=== PATIENT | female | born 1965 | race Caucasian/White ===

== ENCOUNTER 2018-03-27 16:24 | Inpatient (IN) | payer OTHER ==
[2018-03-27] MEDS ORDERED: IPRATROPIUM 0.5 MG/2.5 ML NEBU INHALATION STA (16:55)
[2018-03-27] MEDS ORDERED: ALBUTEROL NEBULIZED 2.5 MG/3 ML INHALATION STA (16:55)
[2018-03-27] MEDS ORDERED: SODIUM CHLORIDE 0.9% 1,000 ML IV STA (16:55)
[2018-03-27] MEDS ORDERED: cefTRIAXone IN SWFI 2,000 MG/20 ML SYRINGE IVP STA (16:55)
[2018-03-27] MEDS ORDERED: AZITHROMYCIN 500 MG in SODIUM CHLORIDE 0.9% 250 ML IVPB STA (16:55)
[2018-03-27] MEDS ORDERED: methylPREDNISolone SOD SUCCI 125 MG/2 ML VIAL IV STA (16:55)
[2018-03-27 17:21] LABS: Basophils # (A) 0.1 k/uL (0-0.2); Basophils % (A) 1 %; Eosinophils # (A) 0.1 k/uL (0-0.7); Eosinophils % (A) 1 %; HCT 38.7 % (34.0-46.0); HGB 12.7 gm/dL (11.4-16.0); Hypochromasia Slight; Lymphocytes # (A) 1.3 k/uL (1.0-4.8); Lymphocytes % (A) 17 %; MCH 32.5 pg (25.0-35.0); MCHC 32.9 g/dL (31.0-37.0); MCV 98.8 fL (80.0-100.0); Macrocytosis Slight; Mean Platelet Volume 7.8; Monocytes # (A) 1.1 k/uL (0-1.0); Monocytes % (A) 14 %; Neutrophils # (A) 5.2 k/uL (1.3-7.7); Neutrophils % (A) 66 %; Platelet Count 189 k/uL (150-450); RBC 3.92 m/uL (3.80-5.40); RDW 15.9 % (11.5-15.5); WBC 7.9 k/uL (3.8-10.6)
[2018-03-27 17:35] LABS: ALT 29 U/L (9-52); AST 28 U/L (14-36); Alkaline Phosphatase 58 U/L (38-126); Anion Gap 10 mmol/L; Blood Urea Nitrogen 16 mg/dL (7-17); Calcium 8.9 mg/dL (8.4-10.2); Carbon Dioxide 28 mmol/L (22-30); Chloride 102 mmol/L (98-107); Glucose 266 mg/dL (74-99); Sodium 140 mmol/L (137-145); Total Bilirubin 0.6 mg/dL (0.2-1.3); Total Protein 6.8 g/dL (6.3-8.2)
[2018-03-27 17:39] LABS: Creatine Kinase 82 U/L (30-135)
[2018-03-27 17:41] LABS: Potassium 4.1 mmol/L (3.5-5.1)
[2018-03-27 17:42] LABS: D-Dimer 0.36 mg/L FEU (<0.60); INR 0.9 (<1.2); Partial Thromboplastin Time 24.6 sec (22.0-30.0); Prothrombin Time 9.3 sec (9.0-12.0)
[2018-03-27] MEDS ORDERED: ACETAMINOPHEN TAB 325 MG TAB PO STA (17:48)
[2018-03-27 17:52] LABS: Creatine Kinase MB 1.5 ng/mL (0.0-2.4); Troponin I <0.012 ng/mL (0.000-0.034)
[2018-03-27 18:10] LABS: VBG PH 7.32 (7.31-7.41)
--- NOTE | 2018-03-27 18:42 | ED ---
SOB HPI - General Chief Complaint: Shortness of Breath Stated Complaint: difficulty breathing Time Seen by Provider: 03/27/18 16:48 Source: patient Mode of arrival: EMS Limitations: no limitations - History of Present Illness Initial Comments: 52 years old lady with a history of COPD comes in with a shortness of breath also complaining about the chest pain she said chest pain gets worse with a deep breaths has been coughing also had a fever chills, she said she believes he has a pneumonia she denies any headache no neck stiffness has a chest pain and shortness of breath no abdominal pain no frequency urgency dysuria no symptoms of TIA or CVA - Related Data Allergies Allergy/AdvReac Type Severity Reaction Status Date / Time phenobarbital Allergy Confusion Verified 03/27/18 16:43 Review of Systems ROS Statement: Those systems with pertinent positive or pertinent negative responses have been documented in the HPI. ROS Other: All systems not noted in ROS Statement are negative. Past Medical History Past Medical History: COPD, Diabetes Mellitus, Hyperlipidemia, Hypertension, Pneumonia, Seizure Disorder Additional Past Medical History / Comment(s): hep b and hep C History of Any Multi-Drug Resistant Organisms: None Reported Past Surgical History: Section, Cholecystectomy Past Psychological History: Depression Smoking Status: Current every day smoker Past Alcohol Use History: Abuse Past Drug Use History: Cocaine, Heroin General Exam - General Exam Comments Initial Comments: General: The patient is awake and alert, in mild distress Skin: Skin is warm and dry and no rashes or lesions are noted. Eye: Pupils are equal, round and reactive to light, extra-ocular movements are intact; there is normal conjunctiva bilaterally. Ears, nose, mouth and throat: There are moist mucous membranes and no oral lesions. Neck: The neck is supple, there is no tenderness or JVD. Cardiovascular: There is a regular rate and rhythm. No murmur, rub or gallop is appreciated. Respiratory: To auscultation bilateral, moderate to severe COPD noticed Gastrointestinal: Soft, non-distended, non-tender abdomen without masses or organomegaly noted. There is no rebound or guarding present. Bowel sounds are unremarkable. Back: There is no tenderness to palpation in the midline. There is no obvious deformity. Musculoskeletal: Normal ROM, no tenderness, There is no pedal edema. There is no calf tenderness or swelling. No cords were appreciated. Neurological: CN II-XII intact, Cranial nerves III through XII are intact. There are no obvious motor or sensory deficits. Coordination appears grossly intact. Speech is normal. Psychiatric: Cooperative, appropriate mood & affect, normal judgment. Limitations: no limitations Course Vital Signs 03/27/18 03/27/18 03/27/18 16:37 16:43 16:50 Temperature 100.2 F H Pulse Rate 120 H Respiratory 26 H Rate Blood Pressure 130/63 O2 Sat by Pulse 74 L 99 Oximetry 03/27/18 03/27/18 17:31 17:41 Temperature Pulse Rate 116 H 120 H Respiratory 20 20 Rate Blood Pressure O2 Sat by Pulse Oximetry KG is a sinus tachycardia ventricular rate is 114 DC interval is 178 QRS duration is 76 QT/QTc is 320/441 review of this EKG does not reveal any ST elevation or ST depression - Reevaluation(s) Reevaluation #1: Assessment was done at [address], d-dimer is negative, CBC, INR, troponin, EKG are unremarkable ABGs showed the pCO2 being bit high consistent with the COPD considering a chest pain patient be admitted to Dr. Lopez and cardiology consult 03/27/18 18:44 Medical Decision Making - Lab Data Result diagrams: 03/27/18 16:47 03/27/18 16:47 Lab Results 03/27/18 03/27/18 03/27/18 Range/Units 16:47 16:47 16:47 WBC 7.9 (3.8-10.6) k/uL RBC 3.92 (3.80-5.40) m/uL Hgb 12.7 (11.4-16.0) gm/dL Hct 38.7 (34.0-46.0) % MCV 98.8 (80.0-100.0) fL MCH 32.5 (25.0-35.0) pg MCHC 32.9 (31.0-37.0) g/dL RDW 15.9 H (11.5-15.5) % Plt Count 189 (150-450) k/uL Neutrophils % 66 % Lymphocytes % 17 % Monocytes % 14 % Eosinophils % 1 % Basophils % 1 % Neutrophils # 5.2 (1.3-7.7) k/uL Lymphocytes # 1.3 (1.0-4.8) k/uL Monocytes # 1.1 H (0-1.0) k/uL Eosinophils # 0.1 (0-0.7) k/uL Basophils # 0.1 (0-0.2) k/uL Hypochromasia Slight Macrocytosis Slight PT (9.0-12.0) sec INR (<1.2) APTT (22.0-30.0) sec D-Dimer (<0.60) mg/L FEU VBG pH (7.31-7.41) VBG pCO2 (37-51) mmHg VBG HCO3 (24-28) mmol/L Sodium 140 (137-145) mmol/L Potassium 4.1 (3.5-5.1) mmol/L Chloride 102 (98-107) mmol/L Carbon Dioxide 28 (22-30) mmol/L Anion Gap 10 mmol/L BUN 16 (7-17) mg/dL Creatinine 0.50 L (0.52-1.04) mg/dL Est GFR (CKD-EPI)AfAm >90 (>60 ml/min/1.73 sqM) Est GFR (CKD-EPI)NonAf >90 (>60 ml/min/1.73 sqM) Glucose 266 H (74-99) mg/dL Calcium 8.9 (8.4-10.2) mg/dL Total Bilirubin 0.6 (0.2-1.3) mg/dL AST 28 (14-36) U/L ALT 29 (9-52) U/L Alkaline Phosphatase 58 (38-126) U/L Total Creatine Kinase 82 (30-135) U/L CK-MB (CK-2) 1.5 (0.0-2.4) ng/mL CK-MB (CK-2) Rel Index 1.8 Troponin I <0.012 (0.000-0.034) ng/mL NT-Pro-B Natriuret Pep pg/mL Total Protein 6.8 (6.3-8.2) g/dL Albumin 4.0 (3.5-5.0) g/dL 03/27/18 03/27/18 03/27/18 Range/Units 16:47 16:47 18:00 WBC (3.8-10.6) k/uL RBC (3.80-5.40) m/uL Hgb (11.4-16.0) gm/dL Hct (34.0-46.0) % MCV (80.0-100.0) fL MCH (25.0-35.0) pg MCHC (31.0-37.0) g/dL RDW (11.5-15.5) % Plt Count (150-450) k/uL Neutrophils % % Lymphocytes % % Monocytes % % Eosinophils % % Basophils % % Neutrophils # (1.3-7.7) k/uL Lymphocytes # (1.0-4.8) k/uL Monocytes # (0-1.0) k/uL Eosinophils # (0-0.7) k/uL Basophils # (0-0.2) k/uL Hypochromasia Macrocytosis PT 9.3 (9.0-12.0) sec INR 0.9 (<1.2) APTT 24.6 (22.0-30.0) sec D-Dimer 0.36 (<0.60) mg/L FEU VBG pH 7.32 (7.31-7.41) VBG pCO2 63 H (37-51) mmHg VBG HCO3 32 H (24-28) mmol/L Sodium (137-145) mmol/L Potassium (3.5-5.1) mmol/L Chloride (98-107) mmol/L Carbon Dioxide (22-30) mmol/L Anion Gap mmol/L BUN (7-17) mg/dL Creatinine (0.52-1.04) mg/dL Est GFR (CKD-EPI)AfAm (>60 ml/min/1.73 sqM) Est GFR (CKD-EPI)NonAf (>60 ml/min/1.73 sqM) Glucose (74-99) mg/dL Calcium (8.4-10.2) mg/dL Total Bilirubin (0.2-1.3) mg/dL AST (14-36) U/L ALT (9-52) U/L Alkaline Phosphatase (38-126) U/L Total Creatine Kinase (30-135) U/L CK-MB (CK-2) (0.0-2.4) ng/mL CK-MB (CK-2) Rel Index Troponin I (0.000-0.034) ng/mL NT-Pro-B Natriuret Pep 316 pg/mL Total Protein (6.3-8.2) g/dL Albumin (3.5-5.0) g/dL Disposition Clinical Impression: Pneumonia, COPD with acute exacerbation, Chest pain Disposition: ADMITTED IP TO THIS HOSP Condition: Good Referrals: Nonstaff,Physician [Primary Care Provider] - 1-2 days
[2018-03-27] MEDS ORDERED: NITROGLYCERIN SL TABS 0.4 MG TAB SUBLINGUAL PRN (18:47)
--- NOTE | 2018-03-27 19:08 | XR ---
EXAMINATION TYPE: XR chest 2V DATE OF EXAM: 03/27/2018 COMPARISON: NONE HISTORY: Syncope, fever TECHNIQUE: Frontal and lateral views of the chest are obtained. FINDINGS: There is no focal air space opacity, pleural effusion, or pneumothorax seen. The cardiac silhouette size is within normal limits. The osseous structures are intact. IMPRESSION: No acute cardiopulmonary process.
[2018-03-27 20:43] LABS: Glucose,Whole Blood 275 mg/dL (75-99)
[2018-03-27] MEDS: BUDESONIDE 0.5 MG/2 ML NEBU INHALATION SCH (21:13)
[2018-03-27] MEDS ORDERED: ONDANSETRON ODT 8 MG TAB.RAPDIS PO PRN (21:37)
[2018-03-27] MEDS ORDERED: IBUPROFEN 600 MG TAB PO PRN (21:37)
[2018-03-27] MEDS ORDERED: TRIMETHOBENZAMIDE 300 MG CAP PO PRN (21:37)
[2018-03-27] MEDS ORDERED: SYMBICORT 80-4.5 MCG INHALER INHALATION SCH (22:00)
[2018-03-27] MEDS: NICOTINE 21MG/24HR PATCH TRANSDERM SCH (22:34)
[2018-03-27] MEDS: ACETAMINOPHEN TAB 325 MG TAB PO SCH (22:35)
[2018-03-27] MEDS: traZODone HCL 50 MG TAB PO SCH (22:37)
[2018-03-27] MEDS: INSULIN ASPART 100 UNIT/ML 1 ML 10 ML VIAL SQ SCH (22:37)
[2018-03-27] MEDS: methylPREDNISolone SOD SUCCI 125 MG/2 ML VIAL IV SCH (22:37)
[2018-03-27] MEDS: GABAPENTIN 300 MG CAP PO SCH (22:37)
[2018-03-28 00:07] LABS: Creatine Kinase 83 U/L (30-135)
[2018-03-28 00:20] LABS: Troponin I <0.012 ng/mL (0.000-0.034)
[2018-03-28] MEDS: ACETAMINOPHEN TAB 325 MG TAB PO SCH ×6 (01:13→21:23)
[2018-03-28] MEDS: IPRATROPIUM-ALBUTEROL 3 ML NEB INHALATION PRN ×2 (01:19→07:40)
[2018-03-28 01:33] LABS: Cholesterol 133 mg/dL (<200); HDL Cholesterol 41 mg/dL (40-60); LDL Cholesterol,Calculated 67 mg/dL (0-99); Triglycerides 125 mg/dL (<150)
[2018-03-28 05:53] LABS: Glucose,Whole Blood 485 mg/dL (75-99)
[2018-03-28] MEDS ORDERED: INSULIN ASPART 100 UNIT/ML 1 ML 10 ML VIAL SQ ONE (05:57)
[2018-03-28] MEDS: INSULIN ASPART 100 UNIT/ML 1 ML 10 ML VIAL SQ SCH ×7 (06:13→21:26)
[2018-03-28] MEDS: methylPREDNISolone SOD SUCCI 125 MG/2 ML VIAL IV SCH ×3 (06:13→17:39)
[2018-03-28 06:42] LABS: Creatine Kinase 68 U/L (30-135)
[2018-03-28 06:53] LABS: Creatine Kinase MB 2.3 ng/mL (0.0-2.4); Troponin I <0.012 ng/mL (0.000-0.034)
[2018-03-28] MEDS: PIOGLITAZONE 30 MG TAB PO SCH (07:05)
[2018-03-28] MEDS: glipiZIDE 5 MG TAB PO SCH ×2 (07:05→17:39)
[2018-03-28] MEDS ORDERED: INSULIN ASPART 100 UNIT/ML 1 ML 10 ML VIAL SQ SCH (07:30)
[2018-03-28] MEDS: BUDESONIDE 0.5 MG/2 ML NEBU INHALATION SCH ×2 (07:40→19:49)
[2018-03-28] MEDS: NICOTINE 21MG/24HR PATCH TRANSDERM SCH (08:23)
[2018-03-28] MEDS: ASPIRIN 325 MG TAB PO SCH (08:23)
[2018-03-28] MEDS ORDERED: INSULIN DETEMIR 100 UNIT/ML 10 ML VIAL SQ SCH (09:00)
[2018-03-28] MEDS ORDERED: IPRATROPIUM-ALBUTEROL 3 ML NEB INHALATION PRN (10:48)
--- NOTE | 2018-03-28 10:48 | P.CNPUL ---
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 She has a history of hypertension, hyperlipidemia, seizures, diabetes mellitus, chronic obstructive pulmonary disease with chronic and ongoing tobacco dependence. She states she does have inhalers, nebulized treatment and oxygen at home. She also has a history of hepatitis B and C. She recently admitted herself to [facility] stating she drinks a gallon and a half of vodka a day and uses crack cocaine. While there she developed increasing chest pain, shortness of breath, cough and congestion and was transferred here to the emergency room yesterday. Troponins negative 2. EKG revealed no acute ST or T wave abnormalities. Chest x-ray reveals no acute cardiopulmonary process. She was admitted for a COPD exacerbation. She is seen today in consultation on the selective care unit. She is currently awake and alert. She is quite dyspneic on minimal conversation on minimal activity. Bronchospastic and wheezy. Maintaining O2 saturations in the 90s on 4 L/m per nasal cannula. She's afebrile. Slightly tachycardic. White count 7.9. Hemoglobin 12.7. Creatinine 0.50. She has been initiated on bronchodilators and IV Solu-Medrol. Review of Systems 14 point review of system was conducted. All negative other than as mentioned in HPI. Past Medical History Past Medical History: COPD, Diabetes Mellitus, Hyperlipidemia, Hypertension, Pneumonia, Seizure Disorder Additional Past Medical History / Comment(s): hep b and hep C History of Any Multi-Drug Resistant Organisms: None Reported Past Surgical History: Section, Cholecystectomy Past Anesthesia/Blood Transfusion Reactions: No Reported Reaction Past Psychological History: Depression Smoking Status: Current every day smoker Past Alcohol Use History: Abuse, Daily, Heavy Past Drug Use History: Cocaine - Past Family History Mother History Unknown: Yes Additional Family Medical History / Comment(s): Alcoholic. Patient does not know family history Medications and Allergies Home Medications Medication Instructions Recorded Confirmed Type Acetaminophen Tab [Tylenol Tab] 650 mg PO Q4H PRN 03/27/18 03/28/18 History Albuterol Inhaler [Ventolin Hfa 1 - 2 puff INHALATION RT-Q4H PRN 03/27/18 History Inhaler] Ibuprofen [Motrin] 600 mg PO Q6HR PRN 03/27/18 03/28/18 History Insulin Aspart [NovoLOG] See Protocol SQ AC-BID@,03/27/18 03/28/18 History Insulin Glargine,Hum.rec.anlog 25 unit SQ DAILY@0600 03/27/18 03/28/18 History [Basaglar Kwikpen U-100] Mometasone/Formoterol [Dulera 100 2 puff INHALATION RT-BID@06,1730 03/27/18 History Mcg/5 Mcg Inhaler] Ondansetron HCl [Zofran] 8 mg PO Q6HR PRN 03/27/18 03/28/18 History Pioglitazone [Actos] 30 mg PO DAILY@03/27/18 03/28/18 History Trimethobenzamide [Tigan] 300 mg PO Q6HR PRN 03/27/18 03/28/18 History glipiZIDE [Glucotrol XL] 10 mg PO DAILY@03/27/18 03/28/18 History traZODone HCL 150 mg PO HS 03/27/18 03/28/18 History Chlorpheniramine Maleate 4 mg PO Q4H PRN 03/28/18 03/28/18 History [Chlor-Trimeton] Gabapentin [Neurontin] 300 mg PO HS 03/28/18 03/28/18 History Multivitamins, Thera [Multivitamin 1 tab PO DAILY 03/28/18 03/28/18 History (formulary)] Mylanta 30 ml PO Q4H PRN 03/28/18 03/28/18 History Ondansetron [Zofran] 4 mg IM Q6H PRN 03/28/18 03/28/18 History Thiamine [Vitamin B-1] 100 mg PO DAILY 03/28/18 03/28/18 History Tigan 200mg Im 200 mg IM Q6H PRN 03/28/18 03/28/18 History Tigan 300mg Suppository 300 mg RECTAL Q6H PRN 03/28/18 03/28/18 History Allergies Allergy/AdvReac Type Severity Reaction Status Date / Time phenobarbital AdvReac Confusion Verified 03/28/18 09:27 Physical Exam Vitals: Vital Signs Temp Pulse Pulse Resp BP BP Pulse Ox 03/28/18 08:10 98.3 F 108 H 16 131/89 99 03/28/18 07:43 92 03/28/18 04:00 97.5 F L 112 H 18 120/74 97 03/28/18 01:29 88 03/28/18 01:22 78 03/27/18 23:00 98.3 F 107 H 20 133/76 97 03/27/18 22:00 98.8 F 109 H 20 135/72 97 03/27/18 20:17 100.0 F H 109 H 22 132/71 97 03/27/18 18:50 114 H 22 126/65 98 03/27/18 17:41 120 H 20 03/27/18 17:31 116 H 20 03/27/18 16:50 99 03/27/18 16:43 130/63 03/27/18 16:37 100.2 F H 120 H 26 H 74 L Intake and Output 03/27/18 03/28/18 03/28/18 22:59 06:59 14:59 Intake Total 990 620 236 Balance 990 620 236 Intake: IV 10 Invasive Line 1 10 Amount of Fluid Infused ( 500 ml) Intake, IV Titration 140 Amount Sodium Chloride 0.9% 1, 140 000 ml @ 20 mls/hr IV . Q24H STA Rx#:[id number] Oral 480 480 236 Other: Voiding Method Toilet Toilet Diaper Diaper # Voids 1 2 Weight 54.43 kg 60.1 kg - Constitutional General appearance: disheveled, obese - EENT Eyes: EOMI, PERRLA ENT: hearing grossly normal Ears: bilateral: normal - Neck Neck: normal ROM Carotids: bilateral: upstroke normal Thyroid: bilateral: normal size - Respiratory Respiratory: bilateral: diminished, wheezing, prolonged expiration - Cardiovascular Rhythm: regular Heart sounds: normal: S1, S2 - Gastrointestinal General gastrointestinal: normal bowel sounds - Integumentary Integumentary: normal turgor - Neurologic Neurologic: CNII-XII intact - Musculoskeletal Musculoskeletal: gait normal - Psychiatric Psychiatric: A&O x's 3, appropriate affect, intact judgment & insight Results - Laboratory Findings CBC and BMP: 03/27/18 16:47 03/27/18 16:47 PT/INR, D-dimer PT 9.3 sec (9.0-12.0) 03/27/18 16:47 INR 0.9 (<1.2) 03/27/18 16:47 D-Dimer 0.36 mg/L FEU (<0.60) 03/27/18 16:47 Abnormal lab findings: Abnormal Labs 03/27/18 03/27/18 03/27/18 16:47 16:47 18:00 RDW 15.9 H Monocytes # 1.1 H VBG pCO2 63 H VBG HCO3 32 H Creatinine 0.50 L Glucose 266 H POC Glucose (mg/dL) 03/27/18 03/28/18 20:42 05:52 RDW Monocytes # VBG pCO2 VBG HCO3 Creatinine Glucose POC Glucose (mg/dL) 275 H 485 H - Diagnostic Findings Chest x-ray: image reviewed Assessment and Plan Assessment: Impression: #1 Acute on chronic hypoxic respiratory failure secondary to an acute exacerbation of chronic obstructive pulmonary disease. #2 Chronic and ongoing tobacco dependence. #3 Heavy alcohol abuse, currently seeking treatment in [place] inpatient rehabilitation. #4 Chronic cocaine abuse. #5 Diabetes mellitus. #6 Hypertension. #7 Hyperlipidemia. #8 History of hepatitis B and C. #9 History of seizure disorder. Plan: The patient was seen and evaluated by Dr. Golden. We will continue bronchodilators. We will add DuoNeb inhalations 4 times a day and when necessary, Pulmicort and Perforomist inhalations twice a day, continue IV Solu- Medrol. No clear indication for antibiotics at this point. We will increase her activity as tolerated. She is educated regarding the importance of complete smoking cessation. NicoDerm patch has been applied. Educated regarding the importance of alcohol cessation. She is hoping to return to [place] rehabilitation upon discharge. She does live in the [place] area and plans to follow up with her automation and control engineer there. In the interim, we' ll Continue to follow make further recommendations based on her clinical status. I, the cosigning physician, performed a history & physical examination of the patient. Lungs sounds with bilateral end expiratory wheeze, diminished. Maintaining good O2 saturations in the 90s on 4 L/m per nasal cannula. I discussed the assessment and plan of care with my nurse practitioner, Agnieszka Santiago. I attest to the above note as dictated by her. Time with Patient: Greater than 30
[2018-03-28] MEDS: IPRATROPIUM-ALBUTEROL 3 ML NEB INHALATION SCH ×3 (11:19→19:49)
[2018-03-28 11:40] LABS: Glucose,Whole Blood 492 mg/dL (75-99)
--- NOTE | 2018-03-28 12:51 | P.CRDCN ---
History of Present Illness Consult date: 03/21/18 Requesting physician: Jhonny Lopez Consult reason: chest pain Chief complaint: Shortness of breath, cough, chest pain History of present illness: This is a 52-year-old female with history of hypertension, hyperlipidemia, diabetes, COPD, nicotine dependence, EtOH abuse, cocaine use, hepatitis B and C. Who is currently at [facility] because she states she was drinking a gallon of vodka every other day and using crack cocaine. According to the patient, she developed significant shortness of breath, states that she's been coughing up a lot of sputum and having significant time breathing. When she tries to take a deep breath she experiences sharp chest pains in her chest. For this reason she came to the emergency room for further evaluation. Chest x-ray does not reveal any acute cardiopulmonary process. EKG showed a sinus tachycardia with no acute changes. Temperature on arrival 100.2, heart rate 120, 74% on room air, blood pressure 130/60. White blood cell count 7.9, hemoglobin 12.7, platelet count 189. D- dimer 0.36. Sodium 140, potassium 4.1, BUN 16, creatinine 0.5. Troponins are negative 3, BNP level 316. At the time of my examination this morning, patient denies any chest discomfort, she states she still feels wheezy and short of breath, cough, however she does state that it significantly improved from her admission here. Past Medical History Past Medical History: COPD, Diabetes Mellitus, Hyperlipidemia, Hypertension, Pneumonia, Seizure Disorder Additional Past Medical History / Comment(s): hep b and hep C History of Any Multi-Drug Resistant Organisms: None Reported Past Surgical History: Section, Cholecystectomy Past Anesthesia/Blood Transfusion Reactions: No Reported Reaction Past Psychological History: Depression Smoking Status: Current every day smoker Past Alcohol Use History: Abuse, Daily, Heavy Past Drug Use History: Cocaine - Past Family History Mother History Unknown: Yes Additional Family Medical History / Comment(s): Alcoholic. Patient does not know family history Medications and Allergies Home Medications Medication Instructions Recorded Confirmed Type Acetaminophen Tab [Tylenol Tab] 650 mg PO Q4H PRN 03/27/18 03/28/18 History Albuterol Inhaler [Ventolin Hfa 1 - 2 puff INHALATION RT-Q4H PRN 03/27/18 History Inhaler] Ibuprofen [Motrin] 600 mg PO Q6HR PRN 03/27/18 03/28/18 History Insulin Aspart [NovoLOG] See Protocol SQ AC-BID@03/27/18 03/28/18 History Insulin Glargine,Hum.rec.anlog 25 unit SQ DAILY@0600 03/27/18 03/28/18 History [Basaglar Kwikpen U-100] Mometasone/Formoterol [Dulera 100 2 puff INHALATION RT-BID@0 03/27/18 History Mcg/5 Mcg Inhaler] Ondansetron HCl [Zofran] 8 mg PO Q6HR PRN 03/27/18 03/28/18 History Pioglitazone [Actos] 30 mg PO DAILY@03/27/18 03/28/18 History Trimethobenzamide [Tigan] 300 mg PO Q6HR PRN 03/27/18 03/28/18 History glipiZIDE [Glucotrol XL] 10 mg PO DAILY@03/27/18 03/28/18 History traZODone HCL 150 mg PO HS 03/27/18 03/28/18 History Chlorpheniramine Maleate 4 mg PO Q4H PRN 03/28/18 03/28/18 History [Chlor-Trimeton] Gabapentin [Neurontin] 300 mg PO HS 03/28/18 03/28/18 History Multivitamins, Thera [Multivitamin 1 tab PO DAILY 03/28/18 03/28/18 History (formulary)] Mylanta 30 ml PO Q4H PRN 03/28/18 03/28/18 History Ondansetron [Zofran] 4 mg IM Q6H PRN 03/28/18 03/28/18 History Thiamine [Vitamin B-1] 100 mg PO DAILY 03/28/18 03/28/18 History Tigan 200mg Im 200 mg IM Q6H PRN 03/28/18 03/28/18 History Tigan 300mg Suppository 300 mg RECTAL Q6H PRN 03/28/18 03/28/18 History Allergies Allergy/AdvReac Type Severity Reaction Status Date / Time phenobarbital AdvReac Confusion Verified 03/28/18 09:27 Physical Exam Vitals: Vital Signs Temp Pulse Pulse Resp BP BP Pulse Ox 03/28/18 11:45 110 H 16 132/72 95 03/28/18 11:30 88 03/28/18 11:15 88 03/28/18 08:10 98.3 F 108 H 16 131/89 99 03/28/18 07:55 92 03/28/18 07:43 92 03/28/18 04:00 97.5 F L 112 H 18 120/74 97 03/28/18 01:29 88 03/28/18 01:22 78 03/27/18 23:00 98.3 F 107 H 20 133/76 97 03/27/18 22:00 98.8 F 109 H 20 135/72 97 03/27/18 20:17 100.0 F H 109 H 22 132/71 97 03/27/18 18:50 114 H 22 126/65 98 03/27/18 17:41 120 H 20 03/27/18 17:31 116 H 20 03/27/18 16:50 99 03/27/18 16:43 130/63 03/27/18 16:37 100.2 F H 120 H 26 H 74 L Intake and Output 03/27/18 03/28/18 03/28/18 22:59 06:59 14:59 Intake Total 990 620 236 Balance 990 620 236 Intake: IV 10 Invasive Line 1 10 Amount of Fluid Infused ( 500 ml) Intake, IV Titration 140 Amount Sodium Chloride 0.9% 1, 140 000 ml @ 20 mls/hr IV . Q24H STA Rx#:[id number] Oral 480 480 236 Other: Voiding Method Toilet Toilet Toilet Diaper Diaper Diaper # Voids 1 2 Weight 54.43 kg 60.1 kg PHYSICAL EXAMINATION: GENERAL: 52-year-old female in no acute distress at the time of my examination HEENT: Head is atraumatic, normocephalic. Pupils equal, round. Sclera anicteric. Conjunctiva are clear. Mucous membranes of the mouth are moist. Neck is supple. There is no elevated jugular venous pressure.] bruit is heard. HEART EXAMINATION: Heart S1, S2 normal. No murmur or gallop heard. CHEST EXAMINATION: On's reveal decreased air exchange throughout with scattered wheezing throughout. ABDOMEN: Soft, nontender. Bowel sounds are heard. No organomegaly noted. EXTREMITIES: 2+ peripheral pulses with no evidence of peripheral edema and no calf tenderness noted. NEUROLOGIC patient is awake, alert and oriented ?-3. . Results 03/27/18 16:47 03/27/18 16:47 Cardiac Enzymes 03/27/18 03/27/18 03/27/18 Range/Units 16:47 16:47 23:02 AST 28 (14-36) U/L CK-MB (CK-2) 1.5 2.0 (0.0-2.4) ng/mL Troponin I <0.012 <0.012 (0.000-0.034) ng/mL 03/28/18 Range/Units 05:14 AST (14-36) U/L CK-MB (CK-2) 2.3 (0.0-2.4) ng/mL Troponin I <0.012 (0.000-0.034) ng/mL Coagulation 03/27/18 Range/Units 16:47 PT 9.3 (9.0-12.0) sec APTT 24.6 (22.0-30.0) sec Lipids 03/27/18 Range/Units 16:47 Triglycerides 125 (<150) mg/dL Cholesterol 133 (<200) mg/dL HDL Cholesterol 41 (40-60) mg/dL CBC 03/27/18 Range/Units 16:47 WBC 7.9 (3.8-10.6) k/uL RBC 3.92 (3.80-5.40) m/uL Hgb 12.7 (11.4-16.0) gm/dL Hct 38.7 (34.0-46.0) % Plt Count 189 (150-450) k/uL Comprehensive Metabolic Panel 03/27/18 Range/Units 16:47 Sodium 140 (137-145) mmol/L Potassium 4.1 (3.5-5.1) mmol/L Chloride 102 (98-107) mmol/L Carbon Dioxide 28 (22-30) mmol/L BUN 16 (7-17) mg/dL Creatinine 0.50 L (0.52-1.04) mg/dL Glucose 266 H (74-99) mg/dL Calcium 8.9 (8.4-10.2) mg/dL AST 28 (14-36) U/L ALT 29 (9-52) U/L Alkaline Phosphatase 58 (38-126) U/L Total Protein 6.8 (6.3-8.2) g/dL Albumin 4.0 (3.5-5.0) g/dL Current Medications Generic Name Dose Route Start Last Admin Trade Name Freq PRN Reason Stop Dose Admin Acetaminophen 650 mg 03/27/18 21:45 03/28/18 12:19 Tylenol Tab PO Not Given Q4H EARLE Albuterol/Ipratropium 3 ml 03/28/18 10:48 Duoneb 0.5 Mg-3 Mg/3 Ml Soln INHALATION RT-Q2H PRN Shortness Of Breath Or Wheezing Albuterol/Ipratropium 3 ml 03/28/18 12:00 03/28/18 11:19 Duoneb 0.5 Mg-3 Mg/3 Ml Soln INHALATION 3 ml RT-Q4H EARLE Administration Aspirin 325 mg 03/28/18 09:00 03/28/18 08:23 Aspirin PO 325 mg DAILY EARLE Administration Budesonide 1 mg 03/28/18 20:00 Pulmicort INHALATION RT-BID EARLE Formoterol Fumarate 20 mcg 03/28/18 20:00 Perforomist INHALATION RT-BID EARLE Gabapentin 300 mg 03/27/18 22:00 03/27/18 22:37 Neurontin PO 300 mg HS EARLE Administration Glipizide 5 mg 03/28/18 07:30 03/28/18 07:05 Glucotrol PO 5 mg AC-BID EARLE Administration Sodium Chloride 1,000 mls @ 20 mls/hr 03/27/18 16:55 03/27/18 17:22 Saline 0.9% IV 03/28/18 16:54 20 mls/hr .Q24H STA Administration Ibuprofen 600 mg 03/27/18 21:37 Motrin PO Q6HR PRN Pain Insulin Aspart 0 unit 03/27/18 22:06 03/28/18 06:13 Novolog SQ 10 unit ACHS EARLE Administration Insulin Aspart 10 unit 03/28/18 12:30 Novolog SQ ACHS EARLE Insulin Detemir 25 unit 03/28/18 09:00 03/28/18 08:23 Levemir SQ 25 unit DAILY EARLE Administration Methylprednisolone Sodium Succinate 60 mg 03/28/18 00:00 03/28/18 06:13 Solu-Medrol IV 60 mg Q6HR EARLE Administration Nicotine 1 patch 03/27/18 20:00 03/28/18 08:23 Habitrol 21mg/24hr Patch TRANSDERM Not Given DAILY [facility] Nitroglycerin 0.4 mg 03/27/18 18:47 Nitrostat SUBLINGUAL Q5M PRN Chest Pain Ondansetron HCl 8 mg 03/27/18 21:37 Zofran Odt PO Q6HR PRN Nausea Pioglitazone HCl 30 mg 03/28/18 07:30 03/28/18 07:05 Actos PO 30 mg AC-BRKFST EARLE Administration Trazodone HCl 150 mg 03/27/18 22:00 03/27/18 22:37 Desyrel PO 150 mg HS EARLE Administration Trimethobenzamide HCl 300 mg 03/27/18 21:37 Tigan PO Q6HR PRN Nausea Intake and Output 03/27/18 03/28/18 03/28/18 22:59 06:59 14:59 Intake Total 990 620 236 Balance 990 620 236 Intake: IV 10 Invasive Line 1 10 Amount of Fluid Infused ( 500 ml) Intake, IV Titration 140 Amount Sodium Chloride 0.9% 1, 140 000 ml @ 20 mls/hr IV . Q24H STA Rx#:[id number] Oral 480 480 236 Other: Voiding Method Toilet Toilet Toilet Diaper Diaper Diaper # Voids 1 2 Weight 54.43 kg 60.1 kg 03/27/18 16:47 03/27/18 16:47 EKG Interpretations (text) EKG on admission shows a sinus tachycardia. Assessment and Plan Plan: Assessment and plan #1 symptoms of progressively worsening shortness of breath with associated productive cough, likely secondary to COPD exacerbation, possible pneumonia. #2 chronic nicotine dependence #3 heavy alcohol abuse and cocaine use, currently at [facility] #4 diabetes #5 chest pain, atypical for acute coronary syndrome, pleuritic in nature. Troponins negative 3. EKG shows sinus tachycardia with no acute changes. #6 hypertension #7 hyperlipidemia #8 history of hepatitis B and C #9 history of seizure disorder Plan Obtain an echocardiogram with Doppler study. Once patient's lung status has improved we may consider performing a stress echocardiographic study. Patient was quite hypoxic on admission with an O2 sat of 74% on room air, tachycardic, we will obtain a d-dimer. Rule out the possibility of pulmonary embolism on top of COPD exacerbation. DNP note has been reviewed, I agree with a documented findings and plan of care. Patient was seen and examined.
[2018-03-28 16:54] LABS: Glucose,Whole Blood 435 mg/dL (75-99)
[2018-03-28] MEDS: NICOTINE POLACRILEX 2 MG GUM BUCCAL PRN (18:30)
[2018-03-28] MEDS: FORMOTEROL FUMARATE 20 MCG/2 ML NEBU INHALATION SCH (19:48)
[2018-03-28 20:36] LABS: Glucose,Whole Blood 480 mg/dL (75-99)
--- NOTE | 2018-03-28 21:12 | HP ---
HISTORY AND PHYSICAL DATE OF SERVICE: March 28, 2018. PRESENTING COMPLAINT: Short of breath, chest tightness. HISTORY OF PRESENTING COMPLAINT: This is a 52-year-old patient with a family doctor out of the area. Patient is currently at [facility] and is there for alcohol disorder. The patient's chronic stable medical conditions include depression, hyperlipidemia, hepatitis B, hepatitis C. The patient has been smoking cigarettes for over 35 years, was drinking a gallon of vodka every other day for which she is admitted to [facility]. Last drink was on March 14. Has been at [facility] since then. Patient lives with a fiancee. The patient presented with a few days of worsening short of breath, wheezing, slight cough. No sputum. Chest tightness. Had a low-grade fever, tired and run down. No fever, chills. No dizziness, lightheadedness. The patient did get bronchodilators. Still feeling rather tight in the chest. The patient is put on bronchodilators, IV steroids. Sugars were running high. Patient refused insulin drip even though sugars running 400s. The patient does feel weak, tired, run down. REVIEW OF SYSTEMS: CONSTITUTIONAL: Weak and tired. HEENT none. RESPIRATORY: As above. Nasal stuffiness. CARDIOVASCULAR as above. GASTROINTESTINAL none. GENITOURINARY none. MUSCULOSKELETAL: None. DERMATOLOGICAL, HEMATOLOGIC, LYMPHATIC: None. PSYCHIATRY: Anxious. NEUROLOGICAL: None. PAST HEALTH: COPD, diabetes type 2, hyperlipidemia, hypertension, seizure alcohol-related, hepatitis B and hepatitis C from sexual partners. PAST SURGICAL HISTORY: , cholecystectomy. PSYCH HISTORY: Depression. SOCIAL HISTORY: The patient was doing occasional cocaine till about 3 weeks ago. Smoking for close to 35 years, averaging about 2 packs a day, now down to 5 cigarettes in the last few days. Was drinking alcoholic vodka, a gallon of vodka every other day. Lives with a fiancee. Currently at [facility]. FAMILY HISTORY: Of alcoholism. HOME MEDICATIONS: 1. Neurontin 300 mg q.h.s. 2. Trazodone 150 mg q.h.s. 3. Glucotrol XL 10 mg p.o. daily. 4. Tigan 300 mg q.6h p.r.n. 5. Tigan suppository p.r.n. 6. Thiamine 100 mg a day. 7. Actos 30 mg a day. 8. Zofran 4 mg IM q.6h p.r.n. and 8 mg p.o. q.6 p.r.n. 9. Mylanta 30 mL p.o. q.4 p.r.n. 10.Multivitamin 1 tablet p.o. daily. 11.Dulera 100/5 2 puffs b.i.d. 12.Insulin aspart per protocol. 13.Insulin Lantus 25 units subcutaneously daily. 14.Motrin 600 mg p.o. q.h.s. 15.Chlor-Trimeton 4 mg q.6h p.r.n. 16.Ventolin HFA 1-2 puffs q.4 p.r.n. 17.Tylenol 650 mg q.4 p.r.n. ALLERGY: PHENOBARBITAL. PHYSICAL EXAMINATION: VITAL SIGNS: Vital signs on presentation, temperature 100.2, pulse 120, respiration 26, blood pressure 130/63, pulse ox 97% on room air. GENERAL APPEARANCE: Well built, BMI 31. Sitting up, short of breath. EYES: Pupils are equal. Conjunctivae normal. HEENT: External appearance of nose and ears normal. Oral cavity normal. NECK: JVD unable to assess. Mass not palpable. RESPIRATORY: Effort increased. LUNGS: Poor air entry, prolonged expiration, wheezing, accessory muscles working. CARDIOVASCULAR: 1st and 2nd sounds normal. Mild edema. ABDOMEN: Distended, soft. Liver and spleen not palpable. LYMPHATICS: No lymph nodes palpable in the neck and axillae. PSYCHIATRY: Alert and oriented x3. Mood and affect anxious-appearing. NEUROLOGICAL: Pupils are equal. Cranial nerves grossly intact. Power and sensation grossly intact. INVESTIGATIONS: White count 7.9, hemoglobin 12.7, potassium 4.1, BUN 16, creatinine 0.5. Troponin x3 negative. ALT 67. EKG shows sinus tachycardia. Chest x-ray film interpreted by me, no acute process. ASSESSMENT: 1. Acute severe chronic obstructive pulmonary disease exacerbation in a current smoker causing acute hypoxic respiratory failure. 2. Obesity; BMI 30.8. 3. Chronic alcohol dependence for which patient is at [facility]. Last drink was on March 14. 4. Chronic nicotine dependence, patient is a cigarette smoker. 5. Recreational cocaine use. 6. Hepatitis B and hepatitis C from sexual partner sexually transmitted. 7. Depression not otherwise specified. 8. Essential hypertension. 9. Diabetes mellitus type 2, chronically on insulin. Uncontrolled over 400 secondary to steroids secondary to hyperglycemia. The patient refusing an insulin drip. PLAN: Patient is put on nebulized bronchodilators, steroids. Cardiology was consulted. We will also add some Claritin-D. Given sugars running over 400 and patient refusing insulin drip, increase the dose of Levemir to 30 units subcu q.12h. Consultation to both Cardiology and Pulmonary was done. Smoking cessation counseling was done with the patient telling her including the fact that smoking makes her breathing worse. The patient is given a nicotine patch. More than 3 minutes was spent on this aspect of the case. MMODL / IJN: [id number] /
[2018-03-28] MEDS: LORATADINE 10 MG TAB PO SCH (21:24)
[2018-03-28] MEDS: GABAPENTIN 300 MG CAP PO SCH (21:24)
[2018-03-28] MEDS: traZODone HCL 50 MG TAB PO SCH (21:25)
[2018-03-29] MEDS: IPRATROPIUM-ALBUTEROL 3 ML NEB INHALATION SCH ×6 (00:47→19:54)
[2018-03-29] MEDS: methylPREDNISolone SOD SUCCI 125 MG/2 ML VIAL IV SCH ×4 (02:42→17:22)
[2018-03-29] MEDS: INSULIN DETEMIR 100 UNIT/ML 10 ML VIAL SQ SCH ×3 (02:42→21:20)
[2018-03-29] MEDS: ACETAMINOPHEN TAB 325 MG TAB PO SCH ×6 (02:44→23:02)
[2018-03-29 06:10] LABS: Glucose,Whole Blood 308 mg/dL (75-99)
[2018-03-29] MEDS: PIOGLITAZONE 30 MG TAB PO SCH (06:33)
[2018-03-29] MEDS: glipiZIDE 5 MG TAB PO SCH ×2 (06:33→17:21)
[2018-03-29] MEDS: INSULIN ASPART 100 UNIT/ML 1 ML 10 ML VIAL SQ SCH ×8 (06:34→21:21)
[2018-03-29] MEDS: BUDESONIDE 0.5 MG/2 ML NEBU INHALATION SCH ×2 (07:09→19:55)
[2018-03-29] MEDS: FORMOTEROL FUMARATE 20 MCG/2 ML NEBU INHALATION SCH ×2 (07:10→19:54)
[2018-03-29] MEDS: LORATADINE 10 MG TAB PO SCH ×2 (08:57→20:12)
[2018-03-29] MEDS: ASPIRIN 325 MG TAB PO SCH (08:57)
[2018-03-29] MEDS: NICOTINE 21MG/24HR PATCH TRANSDERM SCH (08:59)
[2018-03-29] MEDS: NICOTINE POLACRILEX 2 MG GUM BUCCAL PRN (11:18)
[2018-03-29 12:02] LABS: Glucose,Whole Blood 292 mg/dL (75-99)
--- NOTE | 2018-03-29 12:30 | ECHOF ---
Referral Reason:chest pain MEASUREMENTS -------- HEIGHT: 139.7 cm WEIGHT: 59.9 kg BP: 132/72 RVIDd: 2.0 cm (< 3.3) IVSd: 1.0 cm (0.6 - 1.1) LVIDd: 3.9 cm (3.9 - 5.3) LVPWd: 1.0 cm (0.6 - 1.1) IVSs: 1.0 cm LVIDs: 3.5 cm LVPWs: 1.2 cm LAESV Index (A-L): 16.11 ml/m Ao Diam: 2.2 cm (2.0 - 3.7) AV Cusp: 1.3 cm (1.5 - 2.6) LA Diam: 2.4 cm (2.7 - 3.8) MV E Tavo: 1.38 m/s MV DecT: 200 ms MV A Tavo: 0.01 m/s MV E/A Ratio: 94.46 RAP: 15.00 mmHg RVSP: 34.04 mmHg FINDINGS -------- Sinus rhythm. Resting tachycardia (HR>100bpm). This was a technically adequate study. The left ventricular size is normal. Left ventricular wall thickness is normal. Overall left vent ricular systolic function is normal with, an EF between 55 - 60 %. The right ventricle is normal in size and function. Normal LA size by volume 22+/-6 ml/m2. The right atrium is normal in size. The aortic valve is trileaflet, and appears structurally normal. No aortic stenosis or regurgitation. The mitral valve is normal. Mild mitral regurgitation is present. Mild tricuspid regurgitation present. There is no evidence of pulmonary hypertension. The right v entricular systolic pressure, as measured by Doppler, is 34.04mmHg. The pulmonic valve was not well visualized. There is no pulmonic regurgitation present. The aortic root size is normal. The inferior vena cava is dilated with no significant inspiratory collapse which is consistent estima wilfrid right atrial pressure of >20 mmHg. There is no pericardial effusion. CONCLUSIONS -------- 1. Sinus rhythm. 2. Resting tachycardia (HR>100bpm). 3. This was a technically adequate study. 4. The left ventricular size is normal. 5. Left ventricular wall thickness is normal. 6. Overall left ventricular systolic function is normal with, an EF between 55 - 60 %. 7. Normal LA size by volume 22+/-6 ml/m2. 8. The aortic valve is trileaflet, and appears structurally normal. No aortic stenosis or regurgitati on. 9. Mild mitral regurgitation is present. 10. Mild tricuspid regurgitation present. 11. There is no evidence of pulmonary hypertension. 12. The pulmonic valve was not well visualized. 13. There is no pulmonic regurgitation present. 14. The aortic root size is normal. 15. The inferior vena cava is dilated with no significant inspiratory collapse which is consistent es timated right atrial pressure of >20 mmHg. 16. There is no pericardial effusion. PATIENT TRANSPORT OFFICER: Sonny Hendricks RDCS
--- NOTE | 2018-03-29 12:52 | P.PN ---
Subjective Progress Note Date: 03/29/18 This is a 52-year-old female with history of hypertension, hyperlipidemia, diabetes, COPD, nicotine dependence, EtOH abuse, cocaine use, hepatitis B and C. Who is currently at [facility] because she states she was drinking a gallon of vodka every other day and using crack cocaine. According to the patient, she developed significant shortness of breath, states that she's been coughing up a lot of sputum and having significant time breathing. When she tries to take a deep breath she experiences sharp chest pains in her chest. For this reason she came to the emergency room for further evaluation. Chest x-ray does not reveal any acute cardiopulmonary process. EKG showed a sinus tachycardia with no acute changes. Temperature on arrival 100.2, heart rate 120, 74% on room air, blood pressure 130/60. White blood cell count 7.9, hemoglobin 12.7, platelet count 189. D- dimer 0.36. Sodium 140, potassium 4.1, BUN 16, creatinine 0.5. Troponins are negative 3, BNP level 316. At the time of my examination this morning, patient denies any chest discomfort, she states she still feels wheezy and short of breath, cough, however she does state that it significantly improved from her admission here. 03/29/2018 Patient was seen and examined this morning, blood pressure 140/70 with a heart rate in the low 100s, 95% on 2 L of oxygen. D-dimer negative. Echocardiogram with Doppler study was performed which revealed an ejection fraction of 55-60%. From cardiology's perspective, she may be discharged back to [facility] once cleared by primary. We will follow her now on an as-needed basis only, please don't hesitate to call with any questions. Objective - Vital Signs Vital signs: Vital Signs Temp 98.0 F 03/29/18 11:52 Pulse 116 H 03/29/18 11:52 Resp 18 03/29/18 11:52 BP 147/78 03/29/18 11:52 Pulse Ox 95 03/29/18 11:52 Intake & Output 03/28/18 03/29/18 03/29/18 18:59 06:59 18:59 Intake Total 632 400 Balance 632 400 Weight 61.1 kg Intake: Intake, IV Titration 160 Amount Sodium Chloride 0.9% 1, 160 000 ml @ 20 mls/hr IV . Q24H STA Rx#:[id number] Oral 472 400 Other: Voiding Method Toilet Toilet Toilet Diaper Diaper Diaper # Voids 4 1 # Bowel Movements 1 - Exam PHYSICAL EXAMINATION: GENERAL: 52-year-old female in no acute distress at the time of my examination HEENT: Head is atraumatic, normocephalic. Pupils equal, round. Sclera anicteric. Conjunctiva are clear. Mucous membranes of the mouth are moist. Neck is supple. There is no elevated jugular venous pressure.] bruit is heard. HEART EXAMINATION: Heart S1, S2 normal. No murmur or gallop heard. CHEST EXAMINATION: Lungs reveal decreased air exchange throughout with improvement in cattered wheezing throughout. ABDOMEN: Soft, nontender. Bowel sounds are heard. No organomegaly noted. EXTREMITIES: 2+ peripheral pulses with no evidence of peripheral edema and no calf tenderness noted. NEUROLOGIC patient is awake, alert and oriented ?-3. - Labs CBC & Chem 7: 03/27/18 16:47 03/27/18 16:47 Labs: Abnormal Lab Results - Last 24 Hours (Table) 03/28/18 03/28/18 03/28/18 Range/Units 05:14 16:52 20:35 POC Glucose (mg/dL) 435 H 480 H (75-99) mg/dL Hemoglobin A1c 9.0 H (4.0-6.0) % 03/29/18 03/29/18 Range/Units 06:06 11:59 POC Glucose (mg/dL) 308 H 292 H (75-99) mg/dL Hemoglobin A1c (4.0-6.0) % Microbiology - Last 24 Hours (Table) 03/27/18 17:20 Blood Culture - Preliminary Blood No Growth after 24 hours Assessment and Plan Plan: Assessment and plan #1 symptoms of progressively worsening shortness of breath with associated productive cough, likely secondary to COPD exacerbation, possible pneumonia. #2 chronic nicotine dependence #3 heavy alcohol abuse and cocaine use, currently at [facility] #4 diabetes #5 chest pain, atypical for acute coronary syndrome, pleuritic in nature. Troponins negative 3. EKG shows sinus tachycardia with no acute changes. #6 hypertension #7 hyperlipidemia #8 history of hepatitis B and C #9 history of seizure disorder Plan Echocardiogram with Doppler study was performed which revealed a normal left ventricular systolic function, d-dimer was negative. From cardiology's perspective, she may be able to be discharged back to [facility] once cleared by her primary care. We will follow her now on an as-needed basis only, please don't hesitate to call with any questions. DNP note has been reviewed, I agree with a documented findings and plan of care. Patient was seen and examined.
--- NOTE | 2018-03-29 14:07 | P.PN ---
Subjective Progress Note Date: 03/29/18 Principal diagnosis: Acute exacerbation of chronic obstructive pulmonary disease This is a pleasant 52-year-old female patient who resides in [place] and has a primary care physician and bottle caser there. She has a history of hypertension, hyperlipidemia, seizures, diabetes mellitus, chronic obstructive pulmonary disease with chronic and ongoing tobacco dependence. She states she does have inhalers, nebulized treatment and oxygen at home. She also has a history of hepatitis B and C. She recently admitted herself to [facility] stating she drinks a gallon and a half of vodka a day and uses crack cocaine. While there she developed increasing chest pain, shortness of breath, cough and congestion and was transferred here to the emergency room yesterday. Troponins negative 2. EKG revealed no acute ST or T wave abnormalities. Chest x-ray reveals no acute cardiopulmonary process. She was admitted for a COPD exacerbation. She is seen today in consultation on the selective care unit. She is currently awake and alert. She is quite dyspneic on minimal conversation on minimal activity. Bronchospastic and wheezy. Maintaining O2 saturations in the 90s on 4 L/m per nasal cannula. She's afebrile. Slightly tachycardic. White count 7.9. Hemoglobin 12.7. Creatinine 0.50. She has been initiated on bronchodilators and IV Solu-Medrol. The patient is seen again today as 03/29/2018 in follow-up on the selective care unit. She is awake and alert in no acute distress. She is breathing easier today as compared to yesterday. Nearly back to her baseline. Maintaining good O2 saturations in the mid 90s on 2 L/m per nasal cannula. She' s afebrile. Blood culture reveals no growth. She remains on DuoNeb inhalations , Pulmicort and Perforomist inhalations, IV Solu-Medrol. Objective - Vital Signs Vital signs: Vital Signs Temp 98.0 F 03/29/18 11:52 Pulse 116 H 03/29/18 11:52 Resp 18 03/29/18 11:52 BP 147/78 03/29/18 11:52 Pulse Ox 95 03/29/18 11:52 Intake & Output 03/28/18 03/29/18 03/29/18 18:59 06:59 18:59 Intake Total 632 400 Balance 632 400 Weight 61.1 kg Intake: Intake, IV Titration 160 Amount Sodium Chloride 0.9% 1, 160 000 ml @ 20 mls/hr IV . Q24H STA Rx#:[id number] Oral 472 400 Other: Voiding Method Toilet Toilet Toilet Diaper Diaper Diaper # Voids 4 1 # Bowel Movements 1 - Exam - Constitutional General appearance: disheveled, obese - EENT Eyes: EOMI, PERRLA ENT: hearing grossly normal Ears: bilateral: normal - Neck Neck: normal ROM Carotids: bilateral: upstroke normal Thyroid: bilateral: normal size - Respiratory Respiratory: bilateral: diminished, wheezing, prolonged expiration - Cardiovascular Rhythm: regular Heart sounds: normal: S1, S2 - Gastrointestinal General gastrointestinal: normal bowel sounds - Integumentary Integumentary: normal turgor - Neurologic Neurologic: CNII-XII intact - Musculoskeletal Musculoskeletal: gait normal - Psychiatric Psychiatric: A&O x's 3, appropriate affect, intact judgment & insight - Labs CBC & Chem 7: 03/27/18 16:47 03/27/18 16:47 Labs: Abnormal Lab Results - Last 24 Hours (Table) 03/28/18 03/28/18 03/28/18 Range/Units 05:14 16:52 20:35 POC Glucose (mg/dL) 435 H 480 H (75-99) mg/dL Hemoglobin A1c 9.0 H (4.0-6.0) % 03/29/18 03/29/18 Range/Units 06:06 11:59 POC Glucose (mg/dL) 308 H 292 H (75-99) mg/dL Hemoglobin A1c (4.0-6.0) % Microbiology - Last 24 Hours (Table) 03/27/18 17:20 Blood Culture - Preliminary Blood No Growth after 24 hours Assessment and Plan Assessment: Impression: #1 Acute on chronic hypoxic respiratory failure secondary to an acute exacerbation of chronic obstructive pulmonary disease. #2 Chronic and ongoing tobacco dependence. #3 Heavy alcohol abuse, currently seeking treatment in [facility]. #4 Crack cocaine abuse. #5 Diabetes mellitus. #6 Hypertension. #7 Hyperlipidemia. #8 History of hepatitis B and C. #9 History of seizure disorder. Plan: The patient was seen and evaluated by Dr. Golden. The patient is cleared for discharge from the pulmonary standpoint. Complete a prednisone burst and taper. Symbicort and Ventolin HFA. She is again educated regarding the importance of complete smoking cessation. Educated regarding the importance of alcohol cessation. She is hoping to return to [facility] upon discharge. She does live in the [place] area and plans to follow up with her bottle caser there. I, the cosigning physician, performed a history & physical examination of the patient. Lungs sounds with bilateral end expiratory wheeze, diminished. Maintaining good O2 saturations in the 90s on 2 L/m per nasal cannula. I discussed the assessment and plan of care with my nurse practitioner, Agnieszka Santiago. I attest to the above note as dictated by her.
[2018-03-29 15:17] VITALS: BMI 31.3
[2018-03-29 15:44] VITALS: RESP 20
[2018-03-29 17:28] LABS: Glucose,Whole Blood 342 mg/dL (75-99)
[2018-03-29] MEDS: GABAPENTIN 300 MG CAP PO SCH (20:12)
[2018-03-29] MEDS: traZODone HCL 50 MG TAB PO SCH (20:12)
[2018-03-29 20:56] LABS: Glucose,Whole Blood 382 mg/dL (75-99)
--- NOTE | 2018-03-29 21:59 | PN ---
PROGRESS NOTE DATE OF SERVICE: March 29, 2018. PRESENTING COMPLAINT: Short of breath. INTERVAL HISTORY: Patient admitted with severe COPD exacerbation. Seen by Cardiology, not for any further workup. Breathing a bit better. Less wheezing. Did get up to the bathroom. Did tolerate some diet. REVIEW OF SYSTEMS: Done for constitutional, cardiovascular, GI, pulmonary, relevant findings as above. CURRENT MEDICATIONS: Reviewed and include IV Solu-Medrol and DuoNeb. PHYSICAL EXAMINATION: VITAL SIGNS: On examination temperature 97.8, pulse 105, respiration 20, blood pressure 145/60, pulse ox 92 percent on 3 L. GENERAL APPEARANCE: The patient is sitting up, more restful today. EYES: Pupils equal. Conjunctivae normal. HEENT: External appearance of nose and ears normal. Oral cavity normal. NECK: JVD not raised. Mass not palpable. RESPIRATORY: Effort increased. LUNGS: Improved air entry. Decreased wheezing. CARDIOVASCULAR: 1st and 2nd sounds normal. Mild edema. ABDOMEN: Distended, soft. Liver and spleen not palpable. PSYCHIATRY: Alert and oriented x3. Mood and affect less anxious-appearing. INVESTIGATIONS: Troponins are negative. 2D echocardiogram shows preserved LV function. ASSESSMENT: 1. Acute severe chronic obstructive pulmonary disease exacerbation in a current smoker causing acute hypoxic respiratory failure, improving. 2. Obesity, BMI 30.8. 3. Chronic alcohol dependence for which the patient is in [place], last drink was March 14. 4. Chronic nicotine dependence. Patient is a cigarette smoker. 5. Recreational cocaine use. 6. Hepatitis B and C from sexually transmitted. 7. Depression, not otherwise specified. 8. Essential hypertension. 9. Diabetes mellitus type 2 on insulin, uncontrolled from steroids, patient refusing insulin drip. 10.Diabetes uncontrolled due hyperglycemia. PLAN: Will cut back the patient's Solu-Medrol to p.o. steroids. Encouraged to ambulate. No further workup per Cardiology. The patient is counseled yet again about smoking and alcohol. She is willing to go back to [place] if remains stable by tomorrow. MMODL / IJN: [id number] /
[2018-03-29] MEDS: predniSONE 20 MG TAB PO SCH (22:28)
[2018-03-30] MEDS: IPRATROPIUM-ALBUTEROL 3 ML NEB INHALATION SCH ×5 (00:43→16:22)
[2018-03-30] MEDS: ACETAMINOPHEN TAB 325 MG TAB PO SCH ×5 (04:19→17:02)
[2018-03-30 05:29] VITALS: TEMP 96.9
[2018-03-30 06:08] LABS: Glucose,Whole Blood 248 mg/dL (75-99)
[2018-03-30] MEDS: INSULIN ASPART 100 UNIT/ML 1 ML 10 ML VIAL SQ SCH ×6 (06:37→17:03)
[2018-03-30] MEDS: glipiZIDE 5 MG TAB PO SCH ×2 (06:37→17:03)
[2018-03-30] MEDS: PIOGLITAZONE 30 MG TAB PO SCH (06:37)
[2018-03-30 06:55] LABS: Anion Gap 9 mmol/L; Blood Urea Nitrogen 24 mg/dL (7-17); Calcium 9.5 mg/dL (8.4-10.2); Carbon Dioxide 37 mmol/L (22-30); Chloride 93 mmol/L (98-107); Glucose 228 mg/dL (74-99); Potassium 4.2 mmol/L (3.5-5.1); Sodium 139 mmol/L (137-145)
[2018-03-30] MEDS: FORMOTEROL FUMARATE 20 MCG/2 ML NEBU INHALATION SCH (07:44)
[2018-03-30] MEDS: BUDESONIDE 0.5 MG/2 ML NEBU INHALATION SCH (07:44)
[2018-03-30 07:56] VITALS: BP 120/61
[2018-03-30] MEDS: LORATADINE 10 MG TAB PO SCH (08:22)
[2018-03-30] MEDS: NICOTINE 21MG/24HR PATCH TRANSDERM SCH (08:23)
[2018-03-30] MEDS: INSULIN DETEMIR 100 UNIT/ML 10 ML VIAL SQ SCH (08:23)
[2018-03-30] MEDS: predniSONE 20 MG TAB PO SCH (08:23)
[2018-03-30] MEDS ORDERED: ASPIRIN 81 MG PO SCH (09:00)
[2018-03-30 11:38] VITALS: PULSE 88
[2018-03-30 11:52] LABS: Glucose,Whole Blood 353 mg/dL (75-99)
--- NOTE | 2018-03-30 13:39 | P.PN ---
Subjective Progress Note Date: 03/30/18 Principal diagnosis: Acute exacerbation of chronic obstructive pulmonary disease This is a pleasant 52-year-old female patient who resides in [place] and has a primary care physician and hospital pharmacist there. She has a history of hypertension, hyperlipidemia, seizures, diabetes mellitus, chronic obstructive pulmonary disease with chronic and ongoing tobacco dependence. She states she does have inhalers, nebulized treatment and oxygen at home. She also has a history of hepatitis B and C. She recently admitted herself to [facility] stating she drinks a gallon and a half of vodka a day and uses crack cocaine. While there she developed increasing chest pain, shortness of breath, cough and congestion and was transferred here to the emergency room yesterday. Troponins negative 2. EKG revealed no acute ST or T wave abnormalities. Chest x-ray reveals no acute cardiopulmonary process. She was admitted for a COPD exacerbation. She is seen today in consultation on the selective care unit. She is currently awake and alert. She is quite dyspneic on minimal conversation on minimal activity. Bronchospastic and wheezy. Maintaining O2 saturations in the 90s on 4 L/m per nasal cannula. She's afebrile. Slightly tachycardic. White count 7.9. Hemoglobin 12.7. Creatinine 0.50. She has been initiated on bronchodilators and IV Solu-Medrol. The patient is seen again today as 03/29/2018 in follow-up on the selective care unit. She is awake and alert in no acute distress. She is breathing easier today as compared to yesterday. Nearly back to her baseline. Maintaining good O2 saturations in the mid 90s on 2 L/m per nasal cannula. She' s afebrile. Blood culture reveals no growth. She remains on DuoNeb inhalations , Pulmicort and Perforomist inhalations, IV Solu-Medrol. Reevaluated today on 03/30/2018, patient is feeling much better, breathing a lot easier, no cough no wheezing no shortness of breath. Hence the patient could be considered for discharge home today, continue present meds including DuoNeb, Pulmicort and Perforomist, and switched Solu-Medrol to prednisone burst and taper, start 30 mg tapered over 2 weeks. Objective - Vital Signs Vital signs: Vital Signs Temp 96.9 F L 03/30/18 04:00 Pulse 88 03/30/18 11:45 Resp 20 03/30/18 07:55 BP 120/61 03/30/18 07:55 Pulse Ox 95 03/30/18 07:55 Intake & Output 03/29/18 03/30/18 03/30/18 18:59 06:59 18:59 Intake Total 180 Balance 180 Weight 61.1 kg 60.5 kg Intake: Oral 180 Other: Voiding Method Toilet Toilet Toilet Diaper Diaper Diaper # Voids 2 1 # Bowel Movements 1 - Exam Physical Exam: Revealed a 52-year-old white female in no distress. Head: Atraumatic normocephalic. HEENT:[Neck is supple.] [No neck masses.] [No thyromegaly.] [No JVD.] Chest: [Clear throughout, no crackles, no rhonchi, no wheezes.] Cardiac Exam: [Normal S1 and S2, no S3 gallop, no murmur.] Abdomen: [Soft, nontender, no megaly, no rebound, no guarding, normal bowel sounds.] Extremities: [No clubbing, no edema, no cyanosis.] Neurological Exam: [No focal neurologic deficit. Lymphatics: No lymphadenopathy. Psychiatric: Normal mood affect and mental status examination.] - Labs CBC & Chem 7: 03/27/18 16:47 03/30/18 06:02 Labs: Abnormal Lab Results - Last 24 Hours (Table) 03/29/18 03/29/18 03/30/18 Range/Units 17:14 20:54 06:02 Chloride 93 L (98-107) mmol/L Carbon Dioxide 37 H (22-30) mmol/L BUN 24 H (7-17) mg/dL Glucose 228 H (74-99) mg/dL POC Glucose (mg/dL) 342 H 382 H (75-99) mg/dL 03/30/18 03/30/18 Range/Units 06:05 11:30 Chloride (98-107) mmol/L Carbon Dioxide (22-30) mmol/L BUN (7-17) mg/dL Glucose (74-99) mg/dL POC Glucose (mg/dL) 248 H 353 H (75-99) mg/dL Microbiology - Last 24 Hours (Table) 03/27/18 17:20 Blood Culture - Preliminary Blood No Growth after 48 hours Assessment and Plan Assessment: #1 Acute on chronic hypoxic respiratory failure secondary to an acute exacerbation of chronic obstructive pulmonary disease. #2 Chronic and ongoing tobacco dependence. #3 Heavy alcohol abuse, currently seeking treatment in [facility]. #4 Crack cocaine abuse. #5 Diabetes mellitus. #6 Hypertension. #7 Hyperlipidemia. #8 History of hepatitis B and C. #9 History of seizure disorder. Recommendation: Patient was cleared for discharge today, will remain on the same medications he is presently on, including albuterol with Atrovent, Pulmicort and Perforomist, prednisone 30 mg tapered over 2 weeks, follow up with her bombsight specialist in 2 weeks. Patient sees a bombsight specialist out of the [place] area. Time with Patient: Less than 30
[2018-03-30 16:08] LABS: Glucose,Whole Blood 350 mg/dL (75-99)
--- NOTE | 2018-03-31 07:19 | DS ---
DISCHARGE SUMMARY DATE OF ADMISSION: 03/27/2018 DATE OF DISCHARGE: 03/30/2018 FINAL DIAGNOSES: 1. Acute severe chronic obstructive pulmonary disease exacerbation in a current smoker causing acute hypoxic respiratory failure. 2. Obesity; body mass index 30.8. 3. Chronic alcohol dependence for which patient at [facility], last drink was on March 14. 4. Chronic nicotine dependence, patient is a cigarette smoker. 5. Recreational cocaine use. 6. Hepatitis B and C from sexual transmission. 7. Depression, not otherwise specified. 8. Essential hypertension. 9. Diabetes mellitus type 2 on insulin uncontrolled from steroids. The patient refused insulin drip. 10.Diabetes mellitus type 2 uncontrolled with hyperglycemia. HOSPITAL COURSE: This patient drinks and smokes was [place], presents with severe chronic obstructive pulmonary disease exacerbation, did respond well to steroids and bronchodilators. The patient's sugars were running really high but patient refused insulin drip. Doing better by the time of discharge. Patient also had some chest pressure. Seen by Cardiology. A 2-D echo was unremarkable. The patient is counseled repeatedly about smoking and alcohol. The patient is going to go back to [place]. Doing much better today. PHYSICAL EXAMINATION: On examination, afebrile, pulse 107, respiration 20, blood pressure 139/84. The patient was 74% on room air; hence will need oxygen at home. CONSULTATIONS: Dr. Golden from Pulmonary and Dr. Guzman from Cardiology. DISCHARGE MEDICATIONS: 1. Tylenol 650 mg q.4 p.r.n. 2. Ventolin HFA 1 or 2 puffs q.4 p.r.n. 3. Motrin 600 mg q.6 p.r.n. 4. Insulin aspart per scale b.i.d. 5. Insulin glargine 25 units subcu daily. 6. DULERA 100/5, two puffs b.i.d. 7. Zofran 8 mg q.6 p.r.n. 8. Actos 30 mg p.o. daily. 9. Tigan 300 mg q.6 p.r.n. 10.Glucotrol XL 10 mg p.o. daily. 11.Trazodone 150 mg p.o. at bedtime. 12.Chlor-Trimeton 4 mg p.o. q.4 p.r.n. 13.Neurontin 300 mg at bedtime. 14.Multivitamin 1 tablet p.o. daily. 15.Mylanta 30 mL p.o. q.4 p.r.n. 16.Thiamine 100 mg p.o. daily. 17.Tigan p.r.n. 18.Aspirin 81 mg a day. 19.Atrovent HFA 2 puffs q.i.d. 20.Nicotine 21 mg patch. 21.Nicorette 2 mg q.2 p.r.n. Follow up with Dr. Golden in 1 week. Follow up with a family doctor in 3 days. Patient to go on home oxygen 2 L. DISPOSITION: [place]. EXAMINATION: LUNGS: Decreased breath sounds. PSYCH: AO x3, slightly anxious. MMODL / IJN: [id number] /
== END 2018-03-30 18:04 | DRG 190 ==
LOC: EC 16:24 → 6SEL 18:47
PROVIDERS: ADMIT Hospitalist; ATTEND Hospitalist
DX: J44.1 Chronic obstructive pulmonary disease with (acute) exacerbation (principal); J96.21 Acute and chronic respiratory failure with hypoxia; B19.10 Unspecified viral hepatitis B without hepatic coma; T38.0X5A Adverse effect of glucocorticoids and synthetic analogues, initial encounter; Z68.30 Body mass index [BMI] 30.0-30.9, adult; Z79.4 Long term (current) use of insulin; I10 Essential (primary) hypertension; G40.909 Epilepsy, unspecified, not intractable, without status epilepticus; F32.9 Major depressive disorder, single episode, unspecified; B19.20 Unspecified viral hepatitis C without hepatic coma; E11.65 Type 2 diabetes mellitus with hyperglycemia; E66.9 Obesity, unspecified; E78.5 Hyperlipidemia, unspecified; F10.21 Alcohol dependence, in remission; F14.11 Cocaine abuse, in remission; F11.11 Opioid abuse, in remission; F17.210 Nicotine dependence, cigarettes, uncomplicated; Z79.51 Long term (current) use of inhaled steroids; Z79.899 Other long term (current) drug therapy; Z99.81 Dependence on supplemental oxygen; Z88.8 Allergy status to other drugs, medicaments and biological substances; Z87.01 Personal history of pneumonia (recurrent); R00.0 Tachycardia, unspecified
CPT/HCPCS: 36415; 71046; 80048; 80053; 80061; 82550; 82553; 82803; 83036; 83880; 84484; 85025; 85379; 85610; 85730; 87040; 93005; 93306; 94640; 96365; 96366; 96375; 99285

== ENCOUNTER 2024-01-27 03:08 | Observation (INO) | payer OTHER ==
[2024-01-27 03:16] LABS: Glucose,Whole Blood 203 mg/dL (70-110)
[2024-01-27] MEDS: SODIUM CHLORIDE 0.9% 1,000 ML IV ONE (03:24)
[2024-01-27] MEDS: levETIRAcetam IV 500 MG/5 ML VIAL IVP STA (03:30)
--- NOTE | 2024-01-27 03:55 | ED ---
General Adult HPI - General Chief complaint: Altered Mental Status Stated complaint: AMS Time Seen by Provider: 01/27/24 03:10 Source: patient, EMS, RN notes reviewed, old records reviewed Mode of arrival: EMS Limitations: no limitations, altered mental status - History of Present Illness Initial comments: Patient is a 58-year-old female [facility] over concern for altered mentation. There is concern for polypharmacy. Patient received doses of trazodone, gabapentin and 2 milligram Ativan. Has a history of COPD. Has a history of cocaine abuse as well as daily alcohol abuse. Patient became more sedated which prompted patient to be transferred to our facility. She is sleepy but responsive. Denies any acute complaints this time. Is asking for food. Presents for further evaluation. States she last used drugs and alcohol 2 days ago. Unknown if she has a history of seizures. EMS states she may have a history of seizures. We have nothing documented. - Related Data Home Medications Medication Instructions Recorded Confirmed Acetaminophen Tab [Tylenol] 650 mg PO Q4H PRN 03/27/18 03/28/18 Albuterol Inhaler [Ventolin Hfa 1 - 2 puff INHALATION RT-Q4H PRN 03/27/18 03/28/18 Inhaler] Ibuprofen [Motrin] 600 mg PO Q6HR PRN 03/27/18 03/28/18 Insulin Aspart [NovoLOG] See Protocol SQ AC-BID@,03/27/18 03/28/18 Insulin Glargine,Hum.rec.anlog 25 unit SQ DAILY@0600 03/27/18 03/28/18 [Basaglar Gaudencio U-100] Mometasone/Formoterol [Dulera 100 2 puff INHALATION RT-BID@,1730 03/27/18 03/28/18 Mcg-5 Mcg Inhaler] Pioglitazone [Actos] 30 mg PO DAILY@03/27/18 03/28/18 Trimethobenzamide [Tigan] 300 mg PO Q6HR PRN 03/27/18 03/28/18 glipiZIDE [Glucotrol XL] 10 mg PO DAILY@03/27/18 03/28/18 ondansetron HCL [Zofran] 8 mg PO Q6HR PRN 03/27/18 03/28/18 traZODone HCL 150 mg PO HS 03/27/18 03/28/18 Chlorpheniramine Maleate 4 mg PO Q4H PRN 03/28/18 03/28/18 [Chlor-Trimeton] Gabapentin [Neurontin] 300 mg PO HS 03/28/18 03/28/18 Multivitamins, Thera [Multivitamin 1 tab PO DAILY 03/28/18 03/28/18 (formulary)] Mylanta 30 ml PO Q4H PRN 03/28/18 03/28/18 Ondansetron [Zofran] 4 mg IM Q6H PRN 03/28/18 03/28/18 Thiamine [Vitamin B-1] 100 mg PO DAILY 03/28/18 03/28/18 Tigan 200mg Im 200 mg IM Q6H PRN 03/28/18 03/28/18 Tigan 300mg Suppository 300 mg RECTAL Q6H PRN 03/28/18 03/28/18 Previous Rx's Medication Instructions Recorded Aspirin 81 mg PO DAILY chew 03/30/[address] [place] [Atrovent Hfa] 2 puff INHALATION QID #1 inhaler 03/30/18 Nicotine 21Mg/24Hr Patch [Habitrol] 1 patch TRANSDERM DAILY #30 patch 03/30/18 Nicotine Gum (Polacrilex) 2 mg BUCCAL Q2HR PRN #30 gum 03/30/18 [Nicorette] Allergies Allergy/AdvReac Type Severity Reaction Status Date / Time phenobarbital AdvReac Confusion Verified 03/28/18 09:27 Review of Systems ROS Statement: Those systems with pertinent positive or pertinent negative responses have been documented in the HPI. Review of Systems: CONST: Denies fever EYES: Denies blurry vision ENT: Denies nasal congestion C/V: Denies Chest pain RESP: Denies shortness of breath GI: Denies abdominal pain : Denies dysuria SKIN: Denies rash. MSK: Denies joint pain. NEURO: Denies headache ROS Other: All systems not noted in ROS Statement are negative. Past Medical History Past Medical History: COPD, Diabetes Mellitus, Hyperlipidemia, Hypertension, Pneumonia, Seizure Disorder Additional Past Medical History / Comment(s): hep b and hep C History of Any Multi-Drug Resistant Organisms: None Reported Past Surgical History: Unable to Obtain, Section, Cholecystectomy Past Anesthesia/Blood Transfusion Reactions: No Reported Reaction Past Psychological History: Depression Smoking Status: Current every day smoker Past Alcohol Use History: Abuse, Daily, Heavy Past Drug Use History: Cocaine - Past Family History Mother History Unknown: Yes Additional Family Medical History / Comment(s): Alcoholic. Patient does not know family history General Exam - General Exam Comments Initial Comments: General: Appears in no acute distress. HEAD: Normal with no signs of head trauma. EYES: PERRLA, EOMI, conjunctiva normal, no discharge. Pupils are 2 mm and equal bilaterally. ENT: Hearing grossly intact, normal oropharynx. RESPIRATORY: Expiratory wheezing. Hypoxic on room air. Improved on 2 L nasal cannula of oxygen. No significant increased work of breathing. C/V: Regular rate and rhythm. S1 and S2 auscultated, no edema, peripheral pulses 2+ and intact throughout ABD: Abd is soft, nontender, nondistended EXT: Normal range of motion, no obvious deformity SKIN: No rashes or lesions observed on exposed skin. NEURO: Alert and oriented x 4. Slightly sleepy but responds to questions and has no focal deficits. Appears sedated. Limitations: no limitations, altered mental status Course Vital Signs 01/27/24 01/27/24 01/27/24 03:11 03:25 03:30 Temperature 97.6 F Pulse Rate 101 H 96 96 Respiratory 18 13 14 Rate Blood Pressure 90/67 96/64 96/64 O2 Sat by Pulse 93 L 96 96 Oximetry 01/27/24 01/27/24 01/27/24 04:00 04:30 04:36 Temperature Pulse Rate 91 90 Respiratory 16 14 Rate Blood Pressure 97/60 103/69 O2 Sat by Pulse 95 98 95 Oximetry 01/27/24 01/27/24 05:00 05:30 Temperature Pulse Rate 89 86 Respiratory 16 16 Rate Blood Pressure 98/81 124/70 O2 Sat by Pulse 93 L 93 L Oximetry Medical Decision Making - Medical Decision Making Was pt. sent in by a medical professional or institution (SHARIFA Canales, REGIONAL MEDICAL DIRECTOR, urgent care, hospital, or correction...) When possible be specific @ -Sent from [facility] over concern for altered mentation and possible oversedation. Did you speak to anyone other than the patient for history (EMS, parent, family, police, friend...)? What history was obtained from this source @ -EMS who provided transport history. Did you review nursing and triage notes (agree or disagree)? Why? @ -I reviewed and agree with nursing and triage notes Were old charts reviewed (outside hosp., previous admission, EMS record, old EKG, old radiological studies, urgent care reports/EKG's, correction records)? Report findings @ -EKG reviewed from 2018. New T wave inversions in aVL and V2 on current EKG. Differential Diagnosis (chest pain, altered mental status, abdominal pain women, abdominal pain men, vaginal bleeding, weakness, fever, dyspnea, syncope, headache, dizziness, GI bleed, back pain, seizure, CVA, palpatations, mental health, musculoskeletal)? @ -Differential Altered Mental Status: Hypoglycemia, DKA, hypercapnia, ETOH, overdose, CO poisoning, trauma, myxedema coma, HTN encephalopathy, infection, encephalitis, psychosis, intercranial hemorrhage, hepatic encephalopathy, meningitis, CVA, this is not meant to be an all-inclusive list EKG interpreted by me (3pts min.). @ -As above X-rays interpreted by me (1pt min.). @ -Chest x-ray reveals no obvious acute cardiopulmonary process. CT interpreted by me (1pt min.). @ -CT brain reveals no obvious acute intracranial process or injury. U/S interpreted by me (1pt. min.). @ -None done What testing was considered but not performed or refused? (CT, X-rays, U/S, labs)? Why? @ -None What meds were considered but not given or refused? Why? @ -None Did you discuss the management of the patient with other professionals (professionals i.e. , PA, REGIONAL MEDICAL DIRECTOR, lab, RT, psych nurse, social media assistant, flue gas analyst, teacher, budget officer, shoe parts caser)? Give summary @ -Spoke with city call Dr. Barber of [facility] who accepted the admission. Was smoking cessation discussed for >3mins.? @ -No Was critical care preformed (if so, how long)? @ -No Were there social determinants of health that impacted care today? How? (Homelessness, low income, unemployed, alcoholism, drug addiction, transportation, low edu. Level, literacy, decrease access to med. care, mcc, rehab)? @ -No Was there de-escalation of care discussed even if they declined (Discuss DNR or withdrawal of care, Hospice)? DNR status @ -No What co-morbidities impacted this encounter? (DM, HTN, Smoking, COPD, CAD, Cancer, CVA, ARF, Chemo, Hep., AIDS, mental health diagnosis, sleep apnea, morbid obesity)? @ -None Was patient admitted / discharged? Hospital course, mention meds given and route, prescriptions, significant lab abnormalities, going to OR and other pertinent info. @ -Patient presents emergency department complaining of increased sedation after receiving doses of Ativan as well as her normal home meds of gabapentin and trazodone at [facility]. Patient became more sleepy. Became hypoxic. Has a history of COPD. Presents for further evaluation. She is alert and oriented x 4 but more sleepy. Will obtain altered mental status workup. Also appears to be having mild COPD exacerbation. Patient states she is normally on oxygen. We will symptomatically treat with IV steroids, fluids, breathing treatment. She was in agreement this plan. Was mildly hypotensive on presentation. Continue to monitor. EKG shows no signs of acute ischemia.Imaging unremarkable. We were able to wean the patient off of the nasal cannula oxygen. Patient's vital signs normalized and she is doing better at this time. However I would like to admit her she is still somewhat lethargic probably from the polypharmacy. She also has a lactic acidosis above 3 which I think is likely secondary to hypoxia from lethargy from polypharmacy as well as COPD. Also could be from dehydration as she has had a few episodes of diarrhea. Patient was in agreement this plan. She was resting comfortably at this time. I spoke with the admitting provider, Dr. Barber of [facility] who accepted the admission. Undiagnosed new problem with uncertain prognosis? @ -No Drug Therapy requiring intensive monitoring for toxicity (Heparin, Nitro, Insulin, Cardizem)? @ -No Were any procedures done? @ -No Diagnosis/symptom? @ -Dehydration, COPD, fatigue secondary to polypharmacy Acute, or Chronic, or Acute on Chronic? @ -Acute Uncomplicated (without systemic symptoms) or Complicated (systemic symptoms)? @ -Complicated Side effects of treatment? @ -None Exacerbation, Progression, or Severe Exacerbation] @ -No Poses a threat to life or bodily function? @ -Yes - Lab Data Result diagrams: 01/27/24 03:21 01/27/24 03:21 Lab Results 01/27/24 01/27/24 01/27/24 Range/Units 03:15 03:21 03:21 WBC 5.5 (3.8-10.6) k/uL RBC 4.60 (3.80-5.40) m/uL Hgb 14.8 (11.4-16.0) gm/dL Hct 46.5 H (34.0-46.0) % MCV 101.1 H (80.0-100.0) fL MCH 32.2 (25.0-35.0) pg MCHC 31.9 (31.0-37.0) g/dL RDW 12.8 (11.5-15.5) % Plt Count 137 L (150-450) k/uL MPV 8.7 Neutrophils % 49 % Lymphocytes % 29 % Monocytes % 15 % Eosinophils % 1 % Basophils % 1 % Neutrophils # 2.7 (1.3-7.7) k/uL Lymphocytes # 1.6 (1.0-4.8) k/uL Monocytes # 0.9 (0-1.0) k/uL Eosinophils # 0.1 (0-0.7) k/uL Basophils # 0.1 (0-0.2) k/uL PT 9.9 L (10.0-12.5) sec INR 0.9 (<1.2) APTT 23.2 (22.0-30.0) sec Sodium (137-145) mmol/L Potassium (3.5-5.1) mmol/L Chloride (98-107) mmol/L Carbon Dioxide (22-30) mmol/L Anion Gap mmol/L BUN (7-17) mg/dL Creatinine (0.52-1.04) mg/dL Est GFR (CKD-EPI)AfAm (>60 ml/min/1.73 sqM) Est GFR (CKD-EPI)NonAf (>60 ml/min/1.73 sqM) Glucose (74-99) mg/dL POC Glucose (mg/dL) 203 H (70-110) mg/dL POC Glu Account Manager B2B ID [place] Plasma Lactic Acid Kulwant (0.7-2.0) mmol/L Calcium (8.4-10.2) mg/dL Total Bilirubin (0.2-1.3) mg/dL AST (14-36) U/L ALT (4-34) U/L Alkaline Phosphatase (38-126) U/L Ammonia (<30) umol/L Total Protein (6.3-8.2) g/dL Albumin (3.5-5.0) g/dL Serum Alcohol mg/dL 01/27/24 01/27/24 Range/Units 03:21 03:21 WBC (3.8-10.6) k/uL RBC (3.80-5.40) m/uL Hgb (11.4-16.0) gm/dL Hct (34.0-46.0) % MCV (80.0-100.0) fL MCH (25.0-35.0) pg MCHC (31.0-37.0) g/dL RDW (11.5-15.5) % Plt Count (150-450) k/uL MPV Neutrophils % % Lymphocytes % % Monocytes % % Eosinophils % % Basophils % % Neutrophils # (1.3-7.7) k/uL Lymphocytes # (1.0-4.8) k/uL Monocytes # (0-1.0) k/uL Eosinophils # (0-0.7) k/uL Basophils # (0-0.2) k/uL PT (10.0-12.5) sec INR (<1.2) APTT (22.0-30.0) sec Sodium 136 L (137-145) mmol/L Potassium 3.9 (3.5-5.1) mmol/L Chloride 97 L (98-107) mmol/L Carbon Dioxide 29 (22-30) mmol/L Anion Gap 10 mmol/L BUN 34 H (7-17) mg/dL Creatinine 1.01 (0.52-1.04) mg/dL Est GFR (CKD-EPI)AfAm 72 (>60 ml/min/1.73 sqM) Est GFR (CKD-EPI)NonAf 62 (>60 ml/min/1.73 sqM) Glucose 202 H (74-99) mg/dL POC Glucose (mg/dL) (70-110) mg/dL POC Glu Account Manager B2B ID Plasma Lactic Acid Kulwant 3.3 H* (0.7-2.0) mmol/L Calcium 9.2 (8.4-10.2) mg/dL Total Bilirubin 0.7 (0.2-1.3) mg/dL AST 20 (14-36) U/L ALT 11 (4-34) U/L Alkaline Phosphatase 63 (38-126) U/L Ammonia <9 (<30) umol/L Total Protein 6.6 (6.3-8.2) g/dL Albumin 4.0 (3.5-5.0) g/dL Serum Alcohol <10 mg/dL - EKG Data -: EKG Interpreted by Me EKG Comments: 12-lead Electrocardiogram Interpretation Note EKG was reviewed and interpreted by myself. 12-lead ECG performed at 0317 is interpreted by me as revealing normal sinus rhythm at a rate of 97 beats per minute. [place] is normal. CT interval is 151 ms, QRS duration is 74 ms, QTc is [address] segment and T wave abnormalities present.. There were no ST or T wave abnormalities to suggest myocardial ischemia or injury. R wave progression across the precordium was satisfactory. Compared with EKG from 2018 which shows new isolated T wave inversion in V2. Also possibly new in aVL. Disposition Clinical Impression: Altered mental status, COPD (chronic obstructive pulmonary disease), Polypharmacy Disposition: ADMITTED IP TO THIS [facility] Condition: Stable Referrals: None,Stated [Primary Care Provider] - 1-2 days Time of Disposition: 05:25
[2024-01-27 04:11] LABS: INR 0.9 (<1.2); Partial Thromboplastin Time 23.2 sec (22.0-30.0); Prothrombin Time 9.9 sec (10.0-12.5)
[2024-01-27] MEDS: methylPREDNISolone SOD SUCCI 125 MG/2 ML VIAL IV STA (04:20)
[2024-01-27 04:22] LABS: ALT 11 U/L (4-34); AST 20 U/L (14-36); African American GFR (CKD) 72 (>60 ml/min/1.73 sqM); Alcohol <10 mg/dL; Alkaline Phosphatase 63 U/L (38-126); Anion Gap 10 mmol/L; Blood Urea Nitrogen 34 mg/dL (7-17); Calcium 9.2 mg/dL (8.4-10.2); Carbon Dioxide 29 mmol/L (22-30); Chloride 97 mmol/L (98-107); Glucose 202 mg/dL (74-99); Non-African American GFR(CKD) 62 (>60 ml/min/1.73 sqM); Potassium 3.9 mmol/L (3.5-5.1); Sodium 136 mmol/L (137-145); Total Bilirubin 0.7 mg/dL (0.2-1.3); Total Protein 6.6 g/dL (6.3-8.2)
[2024-01-27] MEDS: SODIUM CHLORIDE 0.9% 1,000 ML IV STA ×2 (04:24)
[2024-01-27 04:26] LABS: Basophils # (A) 0.1 k/uL (0-0.2); Basophils % (A) 1 %; Eosinophils # (A) 0.1 k/uL (0-0.7); Eosinophils % (A) 1 %; HCT 46.5 % (34.0-46.0); HGB 14.8 gm/dL (11.4-16.0); Lymphocytes # (A) 1.6 k/uL (1.0-4.8); Lymphocytes % (A) 29 %; MCH 32.2 pg (25.0-35.0); MCHC 31.9 g/dL (31.0-37.0); MCV 101.1 fL (80.0-100.0); Mean Platelet Volume 8.7; Monocytes # (A) 0.9 k/uL (0-1.0); Monocytes % (A) 15 %; Neutrophils # (A) 2.7 k/uL (1.3-7.7); Neutrophils % (A) 49 %; Platelet Count 137 k/uL (150-450); RDW 12.8 % (11.5-15.5); WBC 5.5 k/uL (3.8-10.6)
[2024-01-27 04:37] LABS: Lactic Acid, Venous 3.3 mmol/L (0.7-2.0)
--- NOTE | 2024-01-27 04:48 | CT ---
EXAM: CT Head Without Intravenous Contrast CLINICAL HISTORY: ITS.REASON CT Reason: Altered mental status TECHNIQUE: Axial computed tomography images of the head/brain without intravenous contrast. CTDI is 49.2 mGy and DLP is 1095.4 mGy-cm. This CT exam was performed using one or more of the following dose reduction techniques: automated exposure control, adjustment of the mA and/or kV according to patient size, and/or use of iterative reconstruction technique. COMPARISON: No relevant prior studies available. FINDINGS: Brain: Unremarkable. No hemorrhage. Mild nonspecific white matter changes. No edema. Ventricles: Unremarkable. No ventriculomegaly. Bones/joints: Incomplete fusion of the posterior root of C1. Remote fracture deformity of the left infraorbital wall. No acute fracture. Soft tissues: Unremarkable. Sinuses: Unremarkable as visualized. No acute sinusitis. Mastoid air cells: Unremarkable as visualized. No mastoid effusion. IMPRESSION: No evidence of acute intracranial pathology.
--- NOTE | 2024-01-27 04:55 | XR ---
EXAMINATION TYPE: XR chest 1V DATE OF EXAM: 01/27/2024 COMPARISON: Prior chest x-ray March 27, 2018 HISTORY: Altered mental status TECHNIQUE: Single frontal view of the chest is obtained. FINDINGS: Overlying bra strap and EKG leads are in current study. There is no suspicious new focal a ir space opacity, pleural effusion, or pneumothorax seen. The cardiac silhouette size remains within normal limits. The osseous structures are intact. IMPRESSION: No acute cardiopulmonary process.
[2024-01-27] MEDS ORDERED: NALOXONE 0.4 MG/ML 1 ML VIAL IV PRN (05:29)
[2024-01-27] MEDS ORDERED: DEXTROSE 50% SYRINGE 50 ML IVP PRN ×2 (05:34)
[2024-01-27] MEDS: IPRATROPIUM-ALBUTEROL 3 ML NEB INHALATION STA (05:59)
[2024-01-27] MEDS: IPRATROPIUM-ALBUTEROL 3 ML NEB INHALATION SCH (07:56)
[2024-01-27 08:14] LABS: Glucose,Whole Blood 419 mg/dL (70-110)
[2024-01-27 08:20] LABS: Glucose,Whole Blood 314 mg/dL (70-110)
[2024-01-27] MEDS: INSULIN ASPART (NovoLOG) 100 UNIT/ML VIAL SQ SCH (08:20)
[2024-01-27] MEDS: methylPREDNISolone SOD SUCCI 40 MG/ML 1 ML VIAL IV SCH ×2 (08:21→22:38)
[2024-01-27] MEDS: HEPARIN SODIUM,PORCINE 5,000 UNIT/ML 1 ML VIAL SQ SCH (08:21)
[2024-01-27 09:35] LABS: VBG PH 7.38 (7.31-7.41)
[2024-01-27 09:44] LABS: Appearance,Urine Cloudy (Clear); Bacteria,Urine Occasional /hpf; Bilirubin,Urine Negative (Negative); Blood,Urine Moderate (Negative); Color,Urine Yellow; Glucose,Urine (UA) 4+ (Negative); Ketones,Urine Negative (Negative); Leukocyte Esterase,Urine Large (Negative); Nitrite,Urine Negative (Negative); Protein,Urine Negative (Negative); RBC,Urine 9 /hpf (0-5); Specific Gravity,Urine 1.014 (1.001-1.035); WBC,Urine 4 /hpf (0-5)
[2024-01-27 09:46] LABS: Amphetamine Screen,Urine Not Detected (NotDetected); Barbiturate Screen,Urine Not Detected (NotDetected); Benzodiazepines Screen,Urine Detected (NotDetected); Cocaine Screen,Urine Detected (NotDetected); Methadone Screen, Urine Not Detected (NotDetected); Opiate Screen,Urine Not Detected (NotDetected); Oxycodone Screen, Urine Not Detected (NotDetected); Phencyclidine Screen,Urine Not Detected (NotDetected); Tricyclic Antidepressant,Urine Not Detected (NotDetected); Urn Cannabinoid Scrn Not Detected (NotDetected)
[2024-01-27 11:49] LABS: Glucose,Whole Blood 323 mg/dL (70-110)
--- NOTE | 2024-01-27 12:50 | P.CNPUL ---
History of Present Illness Consult date: 01/27/24 Requesting physician: James De La Vega Reason for consult: COPD Chief complaint: Altered mental status History of present illness: This is a 58-year-old female patient who resides in the [place] area who was at [facility] recovering from crack cocaine abuse and alcohol abuse. There she became altered and was concern regarding polypharmacy. She was brought into the emergency room early this morning. She is arousable but drifts off easily. No information can be obtained from the patient at this time. Last noted time of drugs and alcohol was [address] scan of the brain revealed no acute intracranial process. Chest x-ray reveals no acute cardiopulmonary process. Venous blood gases revealed a bicarb of 31, pCO2 of 52 and a pH of 7.38. Glucose 323. White count 5.5. Hemoglobin 14.8. MCV 101.1. Platelets 137. INR 0.9. Sodium 136. Potassium 3.9. Bicarb 29. BUN 34. Creatinine 1.02. Urinalysis is cloudy with 4+ glucose moderate blood and occasional bacteria. Urine drug screen was positive for benzodiazepines and cocaine. Serum alcohol level less than 10. She is maintaining good O2 saturations in the high 90s on room air. Able to protect her airway. She is afebrile. Hemodynamically stable. Review of Systems ROS unobtainable: due to mental status Past Medical History Past Medical History: COPD, Diabetes Mellitus, Hyperlipidemia, Hypertension, Pneumonia, Seizure Disorder Additional Past Medical History / Comment(s): hep b and hep C History of Any Multi-Drug Resistant Organisms: None Reported Past Surgical History: Unable to Obtain, Section, Cholecystectomy Past Anesthesia/Blood Transfusion Reactions: No Reported Reaction Past Psychological History: Depression Smoking Status: Current every day smoker Past Alcohol Use History: Abuse, Daily, Heavy Past Drug Use History: Cocaine - Past Family History Mother History Unknown: Yes Additional Family Medical History / Comment(s): Alcoholic. Patient does not know family history Medications and Allergies Home Medications Medication Instructions Recorded Confirmed Type Acetaminophen Tab [Tylenol] 650 mg PO QID 03/27/18 01/27/24 History Albuterol Inhaler [Ventolin Hfa 1 puff INHALATION RT-QID PRN 03/27/18 01/27/24 History Inhaler] Pioglitazone [Actos] 30 mg PO DAILY@0600 03/27/18 01/27/24 History ondansetron HCL [Zofran] 8 mg PO Q6HR 03/27/18 01/27/24 History Chlorpheniramine Maleate 4 mg PO Q4H PRN 03/28/18 01/27/24 History [Chlor-Trimeton] Gabapentin [Neurontin] 300 mg PO HS 03/28/18 01/27/24 History Multivitamins, Thera [Multivitamin 1 tab PO DAILY@59903/28/18 01/27/24 History (formulary)] Mylanta 30 ml PO Q4H PRN 03/28/18 01/27/24 History Thiamine [Vitamin B-1] 100 mg PO DAILY PRN 03/28/18 01/27/24 History Calcium/Mag/Zinc/D3 1 tab PO TID 01/27/24 01/27/24 History Empagliflozin [Jardiance] 25 mg PO DAILY@59901/27/24 01/27/24 History Fluticasone/Umeclidin/Vilanter 1 puff INHALATION RT-DAILY@59901/27/24 01/27/24 History [Trelegy Ellipta 200-62.5-25] Folic Acid 1 mg PO DAILY 01/27/24 01/27/24 History Hyoscyamine Sulfate [Levsin] 0.125 mg PO QID PRN 01/27/24 01/27/24 History Ibuprofen [Motrin Ib] 600 mg PO Q6H PRN 01/27/24 01/27/24 History Insulin Glargine,Hum.rec.anlog 36 units SQ HS 01/27/24 01/27/24 History [Lantus Solostar Pen] Insulin Regular, Human [NovoLIN R] See Protocol SQ AC-TID 01/27/24 01/27/24 History LORazepam [Ativan] 1 - 2 mg PO Q4H 01/27/24 01/27/24 History Loperamide HCl [Imodium A-D] 4 mg PO QID PRN MDD 4 doses 01/27/24 01/27/24 History Multivitamins, Thera [Multivitamin 1 tab PO DAILY PRN 01/27/24 01/27/24 History (formulary)] Omeprazole [PriLOSEC] 40 mg PO DAILY@59901/27/24 01/27/24 History Thiamine [Vitamin B-1] 100 mg PO DAILY@0600 01/27/24 01/27/24 History cloNIDine HCL [Catapres] 0.1 - 0.3 mg PO Q4H PRN 01/27/24 01/27/24 History metFORMIN HCL 500 mg PO BID@0600,1800 01/27/24 01/27/24 History traZODone HCL 300 mg PO HS 01/27/24 01/27/24 History Allergies Allergy/AdvReac Type Severity Reaction Status Date / Time phenobarbital AdvReac Confusion Verified 03/28/18 09:27 Physical Exam Vitals: Vital Signs Temp Pulse Resp BP Pulse Ox 01/27/24 12:07 101 H 16 118/75 97 01/27/24 11:43 86 01/27/24 11:35 96 01/27/24 08:56 100 20 130/84 98 01/27/24 07:56 100 01/27/24 07:21 89 20 103/81 100 01/27/24 06:09 88 01/27/24 05:59 92 01/27/24 05:30 86 16 124/70 93 L 01/27/24 05:00 89 16 98/81 93 L 01/27/24 04:36 95 01/27/24 04:30 90 14 103/69 98 01/27/24 04:00 91 16 97/60 95 01/27/24 03:30 96 14 96/64 96 01/27/24 03:25 96 13 96/64 96 01/27/24 03:11 97.6 F 101 H 18 90/67 93 L Intake and Output 01/26/24 01/27/24 01/27/24 22:59 06:59 14:59 Other: Weight 81.647 kg 36.741 kg GENERAL EXAM: Arousable, altered 58-year-old female, on room air, in no apparent distress. HEAD: Normocephalic. EYES: Normal reaction of pupils, equal size. NOSE: Clear with pink turbinates. THROAT: No erythema or exudates. NECK: No masses, no JVD. CHEST: No chest wall deformity. LUNGS: Equal air entry with no crackles, wheeze, rhonchi or dullness. CVS: S1 and S2 normal with no audible murmur, regular rhythm. ABDOMEN: No hepatosplenomegaly, normal bowel sounds, no guarding or rigidity. SPINE: No scoliosis or deformity SKIN: No rashes CENTRAL NERVOUS SYSTEM: No focal deficits, tone is normal in all 4 extremities. EXTREMITIES: There is no peripheral edema. No clubbing, no cyanosis. Perip heral pulses are intact. Results - Laboratory Findings CBC and BMP: 01/27/24 03:21 01/27/24 03:21 PT/INR, D-dimer PT 9.9 sec (10.0-12.5) L 01/27/24 03:21 INR 0.9 (<1.2) 01/27/24 03:21 Abnormal lab findings: Abnormal Labs 01/27/24 01/27/24 01/27/24 03:15 03:21 03:21 Hct 46.5 H MCV 101.1 H Plt Count 137 L PT 9.9 L VBG pCO2 VBG HCO3 Sodium Chloride BUN Glucose POC Glucose (mg/dL) 203 H Plasma Lactic Acid Kulwant Urine Appearance Urine Glucose (UA) Urine Blood Ur Leukocyte Esterase Urine RBC Urine Bacteria U Benzodiazepines Scrn Urine Cocaine Screen 01/27/24 01/27/24 01/27/24 03:21 03:21 08:12 Hct MCV Plt Count PT VBG pCO2 VBG HCO3 Sodium 136 L Chloride 97 L BUN 34 H Glucose 202 H POC Glucose (mg/dL) 419 H Plasma Lactic Acid Kulwant 3.3 H* Urine Appearance Urine Glucose (UA) Urine Blood Ur Leukocyte Esterase Urine RBC Urine Bacteria U Benzodiazepines Scrn Urine Cocaine Screen 01/27/24 01/27/24 01/27/24 08:19 08:29 09:01 Hct MCV Plt Count PT VBG pCO2 52 H VBG HCO3 31 H Sodium Chloride BUN Glucose POC Glucose (mg/dL) 314 H Plasma Lactic Acid Kulwant Urine Appearance Cloudy H Urine Glucose (UA) 4+ H Urine Blood Moderate H Ur Leukocyte Esterase Large H Urine RBC 9 H Urine Bacteria Occasional H U Benzodiazepines Scrn Detected H Urine Cocaine Screen Detected H 01/27/24 11:48 Hct MCV Plt Count PT VBG pCO2 VBG HCO3 Sodium Chloride BUN Glucose POC Glucose (mg/dL) 323 H Plasma Lactic Acid Kulwant Urine Appearance Urine Glucose (UA) Urine Blood Ur Leukocyte Esterase Urine RBC Urine Bacteria U Benzodiazepines Scrn Urine Cocaine Screen - Diagnostic Findings Chest x-ray: image reviewed Assessment and Plan Assessment: Altered mental status secondary to polypharmacy, the patient was apparently given trazodone, gabapentin and 2 mg of Ativan for withdrawal symptoms History of alcohol abuse last drink 2 days ago History of cocaine abuse last used 2 days ago Urine drug screen positive for benzodiazepines and cocaine chronic obstructive pulmonary disease Chronic and ongoing tobacco dependence Diabetes mellitus Hypertension Hyperlipidemia History of seizures History of hepatitis B History of hepatitis C Plan: The patient was seen and evaluated CT scan of the brain, chest x-ray, labs and medications reviewed Currently stable and on room air Increasing level of alertness Avoid hypnotics, narcotics or sedatives Initiated on bronchodilators, steroids Heparin for DVT prophylaxis Continue her home medication We will continue to follow and make further recommendations based on her clinical status I have personally seen and examined the patient, performed the documentation and the assessment and plan as written. Number of minutes spent on the visit: 20.
[2024-01-27] MEDS ORDERED: MAG HYDROX/AL HYDROX/SIMETH 30 ML CUP PO PRN (13:21)
[2024-01-27] MEDS: INSULIN DETEMIR (LEVEMIR) 100 UNIT/ML SYR SQ STA (14:41)
[2024-01-27 18:24] LABS: Glucose,Whole Blood 436 mg/dL (70-110)
[2024-01-27] MEDS: metFORMIN 500 MG TAB PO SCH (18:34)
[2024-01-27] MEDS: ONDANSETRON 4 MG TAB PO SCH (18:34)
[2024-01-27 19:58] LABS: Glucose,Whole Blood 387 mg/dL (70-110)
[2024-01-27] MEDS: INSULIN DETEMIR (LEVEMIR) 100 UNIT/ML SYR SQ SCH (22:37)
[2024-01-27] MEDS: ACETAMINOPHEN TAB 325 MG TAB PO PRN (22:38)
[2024-01-27] MEDS ORDERED: LORazepam 2 MG/ML INJ IV PRN ×3 (23:10)
[2024-01-27] MEDS ORDERED: LORazepam 0.5 MG TAB PO PRN (23:10)
[2024-01-27] MEDS ORDERED: LORazepam 1 MG TAB PO PRN ×3 (23:10)
--- NOTE | 2024-01-27 23:16 | HP ---
HISTORY AND PHYSICAL CHIEF COMPLAINT: Change in mental status as well as shortness of breath. HISTORY OF PRESENT ILLNESS: This is a 58-year-old woman with a past medical history of multiple medical problems including COPD, hypertension, hyperlipidemia, diabetes mellitus type 2, apparently lives in [place]. The patient had extensive history of substance abuse including cocaine and alcohol. The patient was in [facility]. The patient was referred to [facility] because of the change in mental status as well as some shortness of breath. The patient is lethargic also. The change in mental status secondary to polypharmacy also suspected. Evaluation showed no acute abnormality. The CT scan of the brain also showed no acute abnormality. The patient was admitted for further evaluation and treatment. There is no history of any fever, rigors, or chills. PAST MEDICAL HISTORY: History of COPD, diabetes mellitus, hypertension, hyperlipidemia. Rest of the chart and rest of the history is also reviewed. HOME MEDICATIONS: Reviewed include albuterol. Doses and rest of medications reviewed. ALLERGIES: Phenobarbital. FAMILY HISTORY: History of alcoholism. SOCIAL HISTORY: Alcohol abuse, substance abuse including cocaine. REVIEW OF SYSTEMS: A 14-point review is negative except as mentioned earlier. PHYSICAL EXAMINATION: VITAL SIGNS: Pulse is 101, blood pressure 118/70, respirations 16. HEENT: Conjunctivae normal. NECK: No JVD. CARDIOVASCULAR: S1, S2. RESPIRATIONS: Breath sounds diminished at the bases. A few scattered rhonchi and crackles. ABDOMEN: Soft, nontender. LEGS: No edema. NERVOUS SYSTEM: Nonfocal. SKIN: No ulcer, rash, bleeding. JOINTS: No active deforming arthropathy. LABORATORY DATA: Reviewed. Glucose is 323. UA shows possible UTI. Drug screen is positive for cocaine, benzodiazepines. ASSESSMENT: 1. Change in mental status, possibly secondary to polypharmacy. 2. Acute urinary tract infection, possibly. 3. Chronic obstructive pulmonary disease. 4. Diabetes mellitus type 2, uncontrolled. 5. Hypertension. 6. Hyperlipidemia. 7. History of pneumonia. 8. History of seizure disorder. 9. History hepatitis B and C. 10.History of polysubstance abuse including cocaine. RECOMMENDATIONS AND DISCUSSION: This is a 58-year-old woman, who was referred from [facility]. At this time, I recommend to continue the current medications, continue symptomatic treatment. Bronchodilators. Resume home medications, steroids. Otherwise, I would also recommend empiric antibiotics for UTI and obtain the cultures. Other than that, we will continue to monitor and once the patient is stabilized, we will send the patient back to the rehab in the next 24 to 48 hours. CORY / CARYN: [id number] /
[2024-01-27] MEDS: LORazepam 1 MG TAB PO PRN (23:34)
[2024-01-28 02:01] LABS: Glucose,Whole Blood 372 mg/dL (70-110)
[2024-01-28 05:55] LABS: Glucose,Whole Blood 313 mg/dL (70-110)
[2024-01-28] MEDS: DAPAGLIFLOZIN PROPANEDIOL 10 MG TABLET PO SCH (06:38)
[2024-01-28] MEDS: PANTOPRAZOLE 40 MG TABLET PO SCH (06:38)
[2024-01-28] MEDS: MULTIVITAMINS, THERA 1 EACH TAB PO SCH (06:38)
[2024-01-28] MEDS: PIOGLITAZONE 30 MG TAB PO SCH (06:38)
[2024-01-28 07:29] LABS: Glucose,Whole Blood 245 mg/dL (70-110)
[2024-01-28] MEDS: SYMBICORT 160-4.5 MCG INHALER INHALATION SCH (07:52)
[2024-01-28 08:20] VITALS: TEMP 98.5
[2024-01-28 08:41] LABS: ALT 9 U/L (8-44); AST 15 U/L (13-35); Albumin 3.6 g/dL (3.8-4.9); Albumin/Globulin Ratio 1.57 Ratio (1.60-3.17); Alkaline Phosphatase 66 U/L (41-126); BUN/Creat Ratio 26.56 Ratio (12.00-20.00); Blood Urea Nitrogen 23.9 mg/dL (9.0-27.0); Calcium 8.7 mg/dL (8.7-10.3); Carbon Dioxide 25.6 mmol/L (21.6-31.8); Chloride 101 mmol/L (96-109); Globulin 2.3 g/dL (1.6-3.3); Glucose 309 mg/dL (70-110); Potassium 4.7 mmol/L (3.5-5.5); Sodium 138 mmol/L (135-145); Total Bilirubin <0.2 mg/dL (0.3-1.2); Total Protein 5.9 g/dL (6.2-8.2)
[2024-01-28 09:11] LABS: Basophils # (A) 0.01 X 10*3/uL (0.00-0.10); Basophils % (A) 0.1 %; Eosinophils # (A) 0 X 10*3/uL (0.04-0.35); Eosinophils % (A) 0 %; HCT 39.9 % (37.2-46.3); Lymphocytes # (A) 1.18 X 10*3/uL (0.90-5.00); Lymphocytes % (A) 15.6 %; MCH 32.9 pg (27.0-32.0); MCHC 32.6 g/dL (32.0-37.0); Monocytes # (A) 0.63 X 10*3/uL (0.20-1.00); Monocytes % (A) 8.3 %; NRBC Per 100 WBC 0 X 10*3/uL (0.00-0.01); Neutrophils # (A) 5.74 X 10*3/uL (1.80-7.70); Neutrophils % (A) 75.7 %; Platelet Count 147 X 10*3/uL (140-440); RBC 3.95 X 10*6/uL (4.10-5.20); RDW 12.7 % (11.5-14.5); WBC 7.58 X 10*3/uL (4.50-10.00)
[2024-01-28] MEDS: THIAMINE 100 MG TAB PO SCH (11:07)
[2024-01-28 12:11] LABS: Glucose,Whole Blood 135 mg/dL (70-110)
[2024-01-28 12:27] VITALS: BP 105/71; PULSE 104; RESP 17
[2024-01-28 13:21] VITALS: BMI 18.8
--- NOTE | 2024-01-28 13:51 | P.PN ---
Subjective Progress Note Date: 01/28/24 This is a 58-year-old female patient who resides in the [place] area who was at [facility] recovering from crack cocaine abuse and alcohol abuse. There she became altered and was concern regarding polypharmacy. She was brought into the emergency room early this morning. She is arousable but drifts off easily. No information can be obtained from the patient at this time. Last noted time of drugs and alcohol was [address] scan of the brain revealed no acute intracranial process. Chest x-ray reveals no acute cardiopulmonary process. Venous blood gases revealed a bicarb of 31, pCO2 of 52 and a pH of 7.38. Glucose 323. White count 5.5. Hemoglobin 14.8. MCV 101.1. Platelets 137. INR 0.9. Sodium 136. Potassium 3.9. Bicarb 29. BUN 34. Creatinine 1.02. Urinalysis is cloudy with 4+ glucose moderate blood and occasional bacteria. Urine drug screen was positive for benzodiazepines and cocaine. Serum alcohol level less than 10. She is maintaining good O2 saturations in the high 90s on room air. Able to protect her airway. She is afebrile. Hemodynamically stable. The patient is seen today January 28, 2024 in follow-up on the regular medical floor. She is currently resting in bed. Awake and alert in no acute distress. She is maintaining O2 saturations in the 90s on room air. She has normal staying at KVO. Blood sugar 245. White count 7.5. Hemoglobin 13.0. Platelets 147. Sodium 138. Potassium 4.7. Bicarb 26. BUN 24. Creatinine 0.9. Elations, Symbicort, Solu-Medrol. Heparin for DVT prophylaxis. Currently on the CIWA protocol. Objective - Vital Signs Vital signs: Vital Signs Temp 98.5 F 01/28/24 12:11 Pulse 104 H 01/28/24 12:11 Resp 17 01/28/24 12:11 BP 105/71 01/28/24 12:11 Pulse Ox 97 01/28/24 12:11 FiO2 Intake & Output 01/27/24 01/28/24 01/28/24 18:59 06:59 18:59 Weight 36.741 kg 36.741 kg 36.741 kg Other: Voiding Method Diaper External Catheter # Voids 1 2 - Exam GENERAL EXAM: Alert, disheveled 58-year-old female, on room air, comfortable in no apparent distress. HEAD: Normocephalic. EYES: Normal reaction of pupils, equal size. NOSE: Clear with pink turbinates. THROAT: No erythema or exudates. NECK: No masses, no JVD. CHEST: No chest wall deformity. LUNGS: Equal air entry with no crackles, wheeze, rhonchi or dullness. CVS: S1 and S2 normal with no audible murmur, regular rhythm. ABDOMEN: No hepatosplenomegaly, normal bowel sounds, no guarding or rigidity. SPINE: No scoliosis or deformity SKIN: No rashes CENTRAL NERVOUS SYSTEM: No focal deficits, tone is normal in all 4 extremities. EXTREMITIES: There is no peripheral edema. No clubbing, no cyanosis. Peripheral pulses are intact. - Labs CBC & Chem 7: 01/28/24 04:19 01/28/24 04:24 Labs: Abnormal Lab Results - Last 24 Hours (Table) 01/27/24 01/27/24 01/28/24 Range/Units 18:23 19:57 01:57 RBC (4.10-5.20) X 10*6/uL MCV (80.0-97.0) FL MCH (27.0-32.0) pg Eosinophils # (0.04-0.35) X 10*3/uL BUN/Creatinine Ratio (12.00-20.00) Ratio Glucose (70-110) mg/dL POC Glucose (mg/dL) 436 H 387 H 372 H (70-110) mg/dL Hemoglobin A1c (<=6.0) % Total Bilirubin (0.3-1.2) mg/dL Total Protein (6.2-8.2) g/dL Albumin (3.8-4.9) g/dL Albumin/Globulin Ratio (1.60-3.17) Ratio 01/28/24 01/28/24 01/28/24 Range/Units 04:19 04:24 04:24 RBC 3.95 L (4.10-5.20) X 10*6/uL MCV 101.0 H (80.0-97.0) FL MCH 32.9 H (27.0-32.0) pg Eosinophils # 0 L (0.04-0.35) X 10*3/uL BUN/Creatinine Ratio 26.56 H (12.00-20.00) Ratio Glucose 309 H (70-110) mg/dL POC Glucose (mg/dL) (70-110) mg/dL Hemoglobin A1c 10.9 H (<=6.0) % Total Bilirubin <0.2 L (0.3-1.2) mg/dL Total Protein 5.9 L (6.2-8.2) g/dL Albumin 3.6 L (3.8-4.9) g/dL Albumin/Globulin Ratio 1.57 L (1.60-3.17) Ratio 01/28/24 01/28/24 01/28/24 Range/Units 05:54 07:28 12:10 RBC (4.10-5.20) X 10*6/uL MCV (80.0-97.0) FL MCH (27.0-32.0) pg Eosinophils # (0.04-0.35) X 10*3/uL BUN/Creatinine Ratio (12.00-20.00) Ratio Glucose (70-110) mg/dL POC Glucose (mg/dL) 313 H 245 H 135 H (70-110) mg/dL Hemoglobin A1c (<=6.0) % Total Bilirubin (0.3-1.2) mg/dL Total Protein (6.2-8.2) g/dL Albumin (3.8-4.9) g/dL Albumin/Globulin Ratio (1.60-3.17) Ratio Assessment and Plan Assessment: Altered mental status secondary to polypharmacy, the patient was apparently given trazodone, gabapentin and 2 mg of Ativan for withdrawal symptoms. Recovered and awake and alert History of alcohol abuse last drink 2 days prior to arrival History of cocaine abuse last used 2 days prior to arrival Urine drug screen positive for benzodiazepines and cocaine chronic obstructive pulmonary disease Chronic and ongoing tobacco dependence Diabetes mellitus Hypertension Hyperlipidemia History of seizures History of hepatitis B History of hepatitis C Plan: The patient was seen and evaluated Labs and medications reviewed Currently stable and on room air Awake and alert, no distress Continue Symbicort, albuterol HFA No need for steroids Could be transferred back to [place] I have personally seen and examined the patient, performed the documentation and the assessment and plan as written. Number of minutes spent on the visit: 10.
--- NOTE | 2024-01-29 18:51 | P.DS ---
Providers Date of admission: 01/27/24 05:29 Expected date of discharge: 01/28/24 Attending physician: James De La Vega Consults: 01/27/24 05:29 Consult Physician Routine Consulting Provider: Adan Angulo Reason/Comments: copd Do you want consulting provider notified?: Yes Primary care physician: Stated None Hospital Course: Final diagnosis Change in mental status, likely secondary to polypharmacy Acute urinary tract infection possibly, ruled out, likely asymptomatic bacteriuria patient is denying any symptoms of pain burning or frequency Chronic obstructive pulmonary disease, acute exacerbation Diabetes mellitus, type II, uncontrolled with hyperglycemia Hypertension Hyperlipidemia History of seizure disorder History of hepatitis B and C History of polysubstance abuse including cocaine Continued ongoing nicotine dependence Mild protein calorie malnutrition with a BMI of 18.8 Noncompliance with medications and follow-up GI prophylaxis Prophylaxis Full code Discharge disposition Patient is being discharged in a stable condition with guarded prognosis to [facility] for continued alcohol and drug rehab. Patient will follow-up with her PCP near [place] where she resides in the outpatient setting upon discharge. Patient is to continue with limiting narcotic and STOVE M[employer]TER agents and close outpatient follow-up with pulmonary as scheduled. Total time taken is greater than 35 minutes. Hospital course This is a 58-year-old female who was recently admitted with altered mental status with increased sleepiness and concerns of polypharmacy. Patient was at [facility] and sent here for further evaluation. Patient admits to using cocaine and various other drugs including marijuana, alcohol, tobacco use. Patient was being evaluated by pulmonary continue breathing treatments. Medications adjusted and patient more awake. Patient would like to return to rehab. Patient is a diabetic recommending monitoring blood sugars ACHS and using sliding scale. Patient has been cleared by pulmonary. Recommend outpatient follow-up with primary care provider as well as her cage supervisor in the outpatient setting on discharge. Please refer to other consultation notes for further HPI. Currently no reports of chest pain, shortness of breath, or palpitations. Patient is afebrile. No reports of nausea or vomiting and patient is tolerating diet. Patient will be going to [facility] for continued rehab today. Guarded prognosis given patient's noncompliance and significant comorbidities as well as continued alcohol and drug use. Physical exam: Gen: This is a 58-year-old female who is awake, alert and oriented, well- developed, elderly appearing HEENT: Head is atraumatic, normocephalic. Pupils equal, round. Sclerae is anicteric. NECK: Supple. No JVD. No lymphadenopathy. No thyromegaly. LUNGS: Diminished breath sounds bilaterally with scattered rhonchi. No intercostal retractions. HEART: Regular rate and rhythm. No murmur. ABDOMEN: Soft. Bowel sounds are present. No masses. No tenderness. EXTREMITIES: No pedal edema. No calf tenderness. NEUROLOGICAL: Patient is awake, alert and oriented x3. Cranial nerves 2 through 12 are grossly intact. Please refer to medication reconciliation sheet for a list of medications. The impression and plan of care has been dictated by Melyssa Chadwick, Nurse Practitioner as directed. Dr. Ceferino MD I have performed a history and examination and MDM of this patient, discussed the same with the dictator, and agree with the dictator's assessment and plan as written ,documented as a scribe. Based on total visit time, I have performed more than 50% of the visit. Patient Condition at Discharge: Stable Plan - Discharge Summary Discharge Rx Participant: No New Discharge Prescriptions: New Acetaminophen Tab [Tylenol] 650 mg PO Q6HR PRN tab PRN Reason: Mild Pain Or Fever > 100.5 Ipratropium-Albuterol Nebulize [Duoneb 0.5 mg-3 mg/3 ml Soln] 3 ml INHALATION QID #360 ml Continue Albuterol Inhaler [Ventolin Hfa Inhaler] 1 puff INHALATION RT-QID PRN PRN Reason: bronchodilator ondansetron HCL [Zofran] 8 mg PO Q6HR Pioglitazone [Actos] 30 mg PO DAILY@0600 Chlorpheniramine Maleate [Chlor-Trimeton] 4 mg PO Q4H PRN PRN Reason: Allergy Symptoms Thiamine [Vitamin B-1] 100 mg PO DAILY PRN PRN Reason: supplement Multivitamins, Thera [Multivitamin (formulary)] 1 tab PO DAILY@0600 Mylanta 30 ml PO Q4H PRN PRN Reason: antacid Calcium/Mag/Zinc/D3 1 tab PO TID Empagliflozin [Jardiance] 25 mg PO DAILY@0600 Insulin Glargine,Hum.rec.anlog [Lantus Solostar Pen] 36 units SQ HS Loperamide HCl [Imodium A-D] 4 mg PO QID PRN MDD 4 doses PRN Reason: Diarrhea Omeprazole [PriLOSEC] 40 mg PO DAILY@0600 Thiamine [Vitamin B-1] 100 mg PO DAILY@0600 cloNIDine HCL [Catapres] 0.1 - 0.3 mg PO Q4H PRN PRN Reason: Hypertension Fluticasone/Umeclidin/Vilanter [Trelegy Ellipta 200-62.5-25] 1 puff INHALATION RT-DAILY@0600 Folic Acid 1 mg PO DAILY Hyoscyamine Sulfate [Levsin] 0.125 mg PO QID PRN PRN Reason: abdominal cramping Ibuprofen [Motrin Ib] 600 mg PO Q6H PRN PRN Reason: Pain Insulin Regular, Human [NovoLIN R] See Protocol SQ AC-TID metFORMIN HCL 500 mg PO BID@0600,1800 Multivitamins, Thera [Multivitamin (formulary)] 1 tab PO DAILY PRN PRN Reason: supplement Changed LORazepam [Ativan] 1 mg PO Q4H #0 Discontinued Acetaminophen Tab [Tylenol] 650 mg PO QID Gabapentin [Neurontin] 300 mg PO HS traZODone HCL 300 mg PO HS Discharge Medication List Albuterol Inhaler [Ventolin Hfa Inhaler] 1 puff INHALATION RT-QID PRN 03/27/18 [History] Pioglitazone [Actos] 30 mg PO DAILY@0600 03/27/18 [History] ondansetron HCL [Zofran] 8 mg PO Q6HR 03/27/18 [History] Chlorpheniramine Maleate [Chlor-Trimeton] 4 mg PO Q4H PRN 03/28/18 [History] Multivitamins, Thera [Multivitamin (formulary)] 1 tab PO DAILY@0600 03/28/18 [History] Mylanta 30 ml PO Q4H PRN 03/28/18 [History] Thiamine [Vitamin B-1] 100 mg PO DAILY PRN 03/28/18 [History] Calcium/Mag/Zinc/D3 1 tab PO TID 01/27/24 [History] Empagliflozin [Jardiance] 25 mg PO DAILY@0600 01/27/24 [History] Fluticasone/Umeclidin/Vilanter [Trelegy Ellipta 200-62.5-25] 1 puff INHALATION RT-DAILY@0601/27/24 [History] Folic Acid 1 mg PO DAILY 01/27/24 [History] Hyoscyamine Sulfate [Levsin] 0.125 mg PO QID PRN 01/27/24 [History] Ibuprofen [Motrin Ib] 600 mg PO Q6H PRN 01/27/24 [History] Insulin Glargine,Hum.rec.anlog [Lantus Solostar Pen] 36 units SQ HS 01/27/24 [History] Insulin Regular, Human [NovoLIN R] See Protocol SQ AC-TID 01/27/24 [History] Loperamide HCl [Imodium A-D] 4 mg PO QID PRN MDD 4 doses 01/27/24 [History] Multivitamins, Thera [Multivitamin (formulary)] 1 tab PO DAILY PRN 01/27/24 [History] Omeprazole [PriLOSEC] 40 mg PO DAILY@59901/27/24 [History] Thiamine [Vitamin B-1] 100 mg PO DAILY@59901/27/24 [History] cloNIDine HCL [Catapres] 0.1 - 0.3 mg PO Q4H PRN 01/27/24 [History] metFORMIN HCL 500 mg PO BID@0600,1800 01/27/24 [History] Acetaminophen Tab [Tylenol] 650 mg PO Q6HR PRN tab 01/28/24 [Rx] Ipratropium-Albuterol Nebulize [Duoneb 0.5 mg-3 mg/3 ml Soln] 3 ml INHALATION QID #360 ml 01/28/24 [Rx] LORazepam [Ativan] 1 mg PO Q4H #0 01/28/24 [Rx] Follow up Appointment(s)/Referral(s): None,Stated [Primary Care Provider] - 1-2 days Patient Instructions/Handouts: Ipratropium/Albuterol (By breathing), COPD (Chronic Obstructive Pulmonary Disease) (DC), Altered Mental Status (ED) Discharge Disposition: HOME SELF-CARE
== END 2024-01-28 14:02 | disposition home or self-care (01) ==
LOC: EC 03:08 → 5NMEDONC 05:29 → 3SCARD 19:18 → 5NMEDONC 19:28
PROVIDERS: ADMIT Hospitalist; ATTEND Hospitalist
DX: R41.82 Altered mental status, unspecified (principal); T42.6X5A Adverse effect of other antiepileptic and sedative-hypnotic drugs, initial encounter; T42.4X5A Adverse effect of benzodiazepines, initial encounter; J44.1 Chronic obstructive pulmonary disease with (acute) exacerbation; E11.65 Type 2 diabetes mellitus with hyperglycemia; F10.10 Alcohol abuse, uncomplicated; F14.10 Cocaine abuse, uncomplicated; E44.1 Mild protein-calorie malnutrition; Z68.1 Body mass index [BMI] 19.9 or less, adult; E86.0 Dehydration; I10 Essential (primary) hypertension; E78.5 Hyperlipidemia, unspecified; G40.909 Epilepsy, unspecified, not intractable, without status epilepticus; B19.10 Unspecified viral hepatitis B without hepatic coma; B19.20 Unspecified viral hepatitis C without hepatic coma; R09.02 Hypoxemia; R19.7 Diarrhea, unspecified; F17.200 Nicotine dependence, unspecified, uncomplicated; Z91.148 Patient's other noncompliance with medication regimen for other reason; Z91.199 Patient's noncompliance with other medical treatment and regimen due to unspecified reason; Y90.0 Blood alcohol level of less than 20 mg/100 ml; Z79.51 Long term (current) use of inhaled steroids; Z79.84 Long term (current) use of oral hypoglycemic drugs; Z79.4 Long term (current) use of insulin; Z88.8 Allergy status to other drugs, medicaments and biological substances; Z87.01 Personal history of pneumonia (recurrent)
CPT/HCPCS: 96376 ×2; 96361 ×3; 96372 ×2; 96374; 96375; 99285; 36415; 94640; 94760; 93005; 80053 ×2; 82140; 82803; 83605; 85025 ×2; 85610; 85730; 81001; 87040; 80306; 87086; 83036; 71045; 70450; G0378 ×2; G0480; J1644 ×2; J1953; J2919 ×2; 80320